=== PATIENT | male | born 1960 | race Hispanic/Latino ===

== ENCOUNTER 2017-02-11 20:16 | Emergency (ER) | payer SELFPAY ==
[~2017-02-11] VITALS: Ht 167.6 cm; Wt 86.2 kg
[~2017-02-11 20:16] MED LIST: AMIODARONE HCL200 MG PO; BENAZEPRIL HCL10 MG PO; DIGOXIN125 MCG PO; MULTAQ400 MG PO; TENORMIN25 MG PO; XARELTO20 MG PO; Z.0.BYSTOLIC5 MG; Z.0.CELEBREX50 MG; Z.0.XANAX0.5 MG PO
[2017-02-11] MEDS ORDERED: SODIUM CHLORIDE 0.9% 1000ML 1,000 ML IV STA (20:36)
[2017-02-11] MEDS ORDERED: METOPROLOL TARTRATE 50 MG TAB PO ONE (20:45)
[2017-02-11 21:07] LABS: BASOPHILS % 0.3 % (0.0-1.0); EOSINOPHILS # (AUTO) 0.1 (0.0-0.4); EOSINOPHILS % 1.7 % (0.0-6.0); HEMATOCRIT 42.1 % (38.2-49.6); HEMOGLOBIN 15.4 g/dL (14.0-18.0); LYMPHOCYTES # (AUTO) 1.8 (1.0-3.2); LYMPHOCYTES % 25.2 % (18.0-39.1); MEAN CORPUSCULAR HEMOGLOBIN 32.6 pg (28-32); MEAN CORPUSCULAR HGB CONC 36.6 g/dL (31-35); MEAN CORPUSCULAR VOLUME 89.2 fL (81-99); MONOCYTES # (AUTO) 0.7 (0.2-0.8); MONOCYTES % 10.3 % (4.4-11.3); NEUTROPHILS # (AUTO) 4.4 (2.1-6.9); NEUTROPHILS % 62.2 % (38.7-80.0); PLATELET COUNT 176 x10e3/uL (140-360); RED BLOOD COUNT 4.72 x10e6/uL (4.3-5.7); RED CELL DISTRIBUTION WIDTH 12.1 % (11.7-14.4)
[2017-02-11 21:20] LABS: ALANINE AMINOTRANSFERASE 33 IU/L (0-55); ALBUMIN 3.9 g/dL (3.5-5.0); ALBUMIN/GLOBULIN RATIO 1.1 (0.8-2.0); ALKALINE PHOSPHATASE 70 IU/L (40-150); ANION GAP 10.7 mmol/L (8-16); BLOOD UREA NITROGEN 22 mg/dL (7-26); BUN/CREATININE RATIO 21 (6-25); CALCIUM 8.9 mg/dL (8.4-10.2); CARBON DIOXIDE 26 mmol/L (22-29); CHLORIDE 111 mmol/L (98-107); CREATINE KINASE 450 IU/L (30-200); CREATININE, SERUM 1.03 mg/dL (0.72-1.25); EST GLOMERULAR FILTRATION RATE > 60 ML/MIN (60-); GLUCOSE 124 mg/dL (74-118); POTASSIUM 3.7 mmol/L (3.5-5.1); SODIUM 144 mmol/L (136-145)
[2017-02-11] MEDS ORDERED: HYDROMORPHONE 1MG/1ML INJ IV STA (21:23)
[2017-02-11 21:26] LABS: TROPONIN I < 0.001 ng/mL (0-0.300)
[2017-02-11] MEDS ORDERED: METOPROLOL TARTRATE INJ 1 MG/ML VIAL IV ONE (22:00)
[2017-02-11 22:08] VITALS: BP 121/87
== END 2017-02-11 22:24 | disposition home or self-care (01) ==
LOC: ER 20:16
DX: R07.89 Other chest pain (principal); R00.2 Palpitations; I48.0 Paroxysmal atrial fibrillation; I10 Essential (primary) hypertension
CPT/HCPCS: 36415; 80053; 82550; 82553; 84484; 85025; 93005; 96360; 99283; J7030

== ENCOUNTER 2017-07-29 09:56 | Emergency (ER) | payer SELFPAY ==
[~2017-07-29] VITALS: Ht 167.6 cm; Wt 86.2 kg
--- OUTSIDE RECORDS SUMMARY | 2017-07-29 09:59 | XMS REPORT | Clinical Summary ---
Author Author [facility] Organization [facility] Address Unknown Phone Unavailable Care Team Providers Care Director New Product Name Role Phone Rosalva Kilgore MD PCP Allergies Active Allergy Reactions Severity Noted Date Comments Penicillin 04/08/2015 Has tolerated amoxicillin (allergy to PCN when He was 6 years ago) Current Medications Prescription Sig. Disp. Refills Start End Date Status Date triamcinolone (KENALOG) Apply to affected area 2 80 g 0 11/15/19 Active 0.025 % ointment times daily As needed. 17 cetirizine (ZYRTEC) 10 mg Take 1 tablet by mouth 90 tablet 1 11/15/19 Active tablet daily. 17 CPAP Supply Full Face Mask (fit to 1 Device 0 12/15/19 Active patient), tubing & other 17 supplies as needed to treat ALIX.. amiodarone (CORDARONE) Take 1 tablet by mouth 2 120 tablet 1 03/08/19 Active 200 mg tabletIndications: times daily. 18 History of atrial fibrillation atenolol (TENORMIN) 25 mg Take 1 tablet by mouth 2 180 tablet 1 Active tabletIndications: times daily. 18 History of atrial fibrillation tamsulosin (FLOMAX) 0.4 Take 1 capsule by mouth 90 capsule 1 03/08/19 Active mg extended release daily. 18 capsuleIndications: Nephrolithiasis cetirizine (ZYRTEC) 10 mg Take 1 tablet by mouth 90 tablet 1 03/08/19 Active tabletIndications: daily. 18 Sinusitis, unspecified chronicity, unspecified location cyclobenzaprine Take 1 tablet by mouth 7 tablet 1 03/21/19 Active (FLEXERIL) 10 mg nightly at bedtime as 18 tabletIndications: needed for Muscle Spasms. Musculoskeletal neck pain CPAP DeviceIndications: Use device as directed. 1 Device 0 05/04/19 Active ALIX on CPAP Date of Study: 04/17/12 18 Diagnosis: ALIX 327.23 AHI:27.9 SaO2 guerrero: 77 Auto CPAP Pressure: 7-12 cm H2O with heated humidifier: Yes with mask (fit to patient) and supplies as needed: Yes Chin Strap: No. albuterol (VENTOLIN Inhale 2 Puffs by mouth 4 6.7 g 3 05/05/19 Active HFA,PROVENTIL HFA,PROAIR times daily as needed for 18 HFA) 90 mcg/actuation Wheezing. inhalerIndications: Shortness of breath rivaroxaban (XARELTO) 20 Take 1 tablet by mouth 90 tablet 1 07/06/19 Active mg tabletIndications: daily (with dinner). 18 Anticoagulation monitoring, INR range 2-3 albuterol (VENTOLIN Inhale 2 Puffs by mouth 4 6.7 g 11 09/23/1911/16 Discontin HFA,PROVENTIL HFA,PROAIR times daily as needed for 15 17 ued HFA) 90 mcg/actuation Wheezing. inhalerIndications: History of asthma mometasone (NASONEX) 50 1 [place] by each nostril 17 g 11 09/23/1911/16 Discontin mcg/actuation nasal route daily. 15 17 ued sprayIndications: Allergic rhinitis cetirizine (ZYRTEC) 10 mg Take 1 tablet by mouth 90 tablet 1 04/08/19 10/06/19 Discontin tabletIndications: Other daily. 16 17 ued allergic rhinitis amitriptyline (ELAVIL) 25 Take 2 tablets by mouth 180 tablet 1 10/06/19 Discontin mg tabletIndications: at bedtime nightly. 16 17 ued Vertigo, Headache(784.0), Anxiety Tadalafil (CIALIS) 5 mg Take 1 tablet by mouth as 30 tablet 0 10/06/19 Discontin tabletIndications: needed for Erectile 16 17 ued Erectile dysfunction, Dysfunction. unspecified erectile dysfunction type traMADol (ULTRAM) 50 mg Take 1 tablet by mouth 30 tablet 0 10/01/19 10/06/19 Discontin tabletIndications: Status every 6 hours as needed 16 17 ued post endoscopic carpal for Pain. tunnel release atenolol (TENORMIN) 50 mg Take 1 tablet by mouth 2 180 tablet 1 10/06/19 Discontin tabletIndications: times daily. 16 17 ued History of atrial fibrillation tamsulosin (FLOMAX) 0.4 Take 1 capsule by mouth 90 capsule 1 12/23/19 03/08/19 Discontin mg extended release daily. 16 18 ued capsuleIndications: Nephrolithiasis atenolol (TENORMIN) 25 mg Take 1 tablet by mouth 2 180 tablet 1 03/08/19 Discontin tabletIndications: Atrial times daily. 17 18 ued fibrillation, unspecified type digoxin (LANOXIN) 125 mcg Take 1 tablet by mouth 90 tablet 1 10/06/19 10/14/19 Discontin tabletIndications: Atrial daily. 17 17 ued fibrillation, unspecified type warfarin (COUMADIN) 5 mg Take 1 tablet by mouth 30 tablet 0 10/06/19 10/06/19 Discontin tabletIndications: Atrial daily. 17 17 ued fibrillation, unspecified type rivaroxaban (XARELTO) 20 Take 1 tablet by mouth 90 tablet 0 10/06/19 12/01/19 Discontin mg tabletIndications: daily (with dinner). 17 17 ued Anticoagulation monitoring, INR range 2-3 amiodarone (CORDARONE) Take 1 tablet by mouth 2 120 tablet 1 10/14/19 03/08/19 Discontin 200 mg tabletIndications: times daily. 17 18 ued Atrial fibrillation, unspecified type rivaroxaban (XARELTO) 20 Take 1 tablet by mouth 90 tablet 1 12/01/19 07/06/19 Discontin mg tabletIndications: daily (with dinner). 17 18 ued Anticoagulation monitoring, INR range 2-3 fluticasone (FLONASE) 50 Use 2 Sprays in each 16 g 1 12/15/19 Discontin mcg/actuation nasal nostril daily 17 18 ued sprayIndications: Difficulty using continuous positive airway pressure (CPAP) nasal mask fluticasone (FLONASE) 50 Use 2 Sprays in each 16 g 3 12/15/19 Discontin mcg/actuation nasal spray nostril daily 17 18 ued cyclobenzaprine Take 1 tablet by mouth 7 tablet 1 03/08/19 03/08/19 Discontin (FLEXERIL) 10 mg nightly at bedtime as 18 18 ued tabletIndications: needed for Muscle Spasms. Musculoskeletal neck pain ciclesonide (ZETONNA) 37 Use 1 [place] in each 6.1 g 11 03/08/1905/03 Discontin mcg/actuation nasal HFA nostril daily. 18 18 ued inhalerIndications: Sinusitis, unspecified chronicity, unspecified location [id number] Instill 3 Drops in each 10 mL 0 03/21/19 03/31/19 ortisone (CORTISPORIN) ear 4 times daily for 10 18 18 3.5-10,000-1 days. mg/mL-unit/mL-% otic solutionIndications: Otitis externa of both ears, unspecified chronicity, unspecified type fluticasone (FLONASE) 50 Use 1 [place] in each 16 g 4 05/04/19 mcg/actuation nasal nostril daily for 30 18 18 sprayIndications: days. Allergic rhinitis, unspecified chronicity, unspecified seasonality, unspecified trigger Hospital, Clinic, or Ordered Dose Route Frequency Start End Date Status Other Facility Date Administered Medication triamcinolone acetonide 20 mg OTHER ONCE 03/22/19 03/22/19 Ended (KENALOG-40) injection 20 18 18 mgIndications: Trigger index finger of right hand lidocaine 1 % (XYLOCAINE) 0.5 mL IJ ONCE 03/22/19 03/22/19 Ended injection 0.5 18 18 mLIndications: Trigger index finger of right hand Active Problems Problem Noted Date Renal calculus 03/08/2017 Tick bite 11/14/2016 Irritant contact dermatitis 11/14/2016 Contact with and (suspected) exposure to viral hepatitis- partner has 2016 hepatitis - to use condoms Environmental allergies 11/14/2016 Low serum calcium - nephrolithiasis hist - no supplementation advised 2016 Non-smoker 10/05/2016 Overweight (BMI 25.0-29.9) 10/05/2016 Sleep apnea- using cpap -helping ; BP controlled 10/05/2016 Stress headaches- spouse s/p coma with memory speech issues - needs asst with ADLs Lateral epicondylitis of right elbow 09/17/2015 Alcohol use 05/05/2015 Nephrolithiasis- christy non obstructing 05/05/2015 Hyperplastic polyp of large intestine-Repeat colonoscopy 202401/31/2015 History of asthma 09/22/2014 Allergic rhinitis 09/22/2014 Skin lesion- 1.5 cm left upper abd/chest area-compressible 09/22/2014 History of atrial fibrillation- paroxysmal - on xeralto , amiodarone and atenolol as of 05/2017 -ref to cardiology done ; holter and TTE completed Stress- self issues and caregiver issues 09/22/2014 Hematochezia 09/22/2014 Obesity 09/22/2014 Encounters Date Type Specialty Care Team Description 07/11/2017 Pharmacy Visit 07/05/2017 Pharmacy Visit 07/05/2017 Refill [facility] Rosalva Fernández MD Anticoagulation monitoring, INR range 2-3 07/04/2017 Pharmacy Visit 06/21/2017 Office Visit [facility] Practice Rosalva Kilgore MD History of atrial fibrillation- paroxysmal - on xeralto , amiodarone and atenolol as of 05/2017 -ref to cardiology done ; holter and TTE completed (Primary Dx); Vitamin D insufficiency 06/19/2017 Refill Family Rosalva Fernández MD Anticoagulation monitoring, INR range 2-3 06/19/2017 Pharmacy Visit 06/13/2017 Pharmacy Visit 06/09/2017 Pharmacy Visit 06/09/2017 Pharmacy Visit 05/18/2017 Pharmacy Visit 05/17/2017 Pharmacy Visit 05/13/2017 Orders Only [facility] Rosalva Fernández MD Vitamin D insufficiency (Primary Dx) 05/11/2017 Lab Appointment Lab Colleen Black MD Essential hypertension; Fatigue, unspecified type 05/04/2017 Office Visit Family Practice Alec Grimaldo MD History of atrial Rosalva Kilgore MD fibrillation- paroxysmal - last episode [address] back [facility] ([facility] Dx); Fatigue, unspecified type; History of anxiety; Shortness of breath; History of asthma 05/04/2017 Orders Only Family Rosalva Fernández MD History of anxiety 05/04/2017 Pharmacy Visit 05/03/2017 Office Visit Pulmonology Douglas Boone MD ALIX on CPAP ( Primary Dx); CPAP use counseling; Insufficient sleep syndrome; Excessive daytime sleepiness; Allergic rhinitis, unspecified chronicity, unspecified seasonality, unspecified trigger 05/03/2017 Pharmacy Visit 04/20/2017 Hospital Rosalva iKlgore MD Encounter 04/12/2017 Pharmacy Visit 04/03/2017 Pharmacy Visit 03/29/2017 Pharmacy Visit 03/29/2017 Pharmacy Visit 03/29/2017 Pharmacy Visit 03/22/2017 Office Visit Family Practice Rosalva Kilgore MD Trigger index finger of Sandi Branch MD right hand (Primary Dx) 03/21/2017 Office Visit Family Practice Rosalva Kilgore MD Trigger index finger of right hand (Primary Dx); Otitis externa of both ears, unspecified chronicity, unspecified type; Environmental allergies; Musculoskeletal neck pain 03/21/2017 Orders Only Family Practice Rosalva Kilgore MD Trigger index finger of right hand 03/21/2017 Pharmacy Visit 03/08/2017 Office Visit [facility] Rosalva Kilgore MD History of atrial fibrillation- paroxysmal - last episode 6 wks back - [facility] (Primary Dx); Essential hypertension; Sleep apnea, unspecified type- using cpap ; Nephrolithiasis- christy non obstructing ; Flu vaccine need; Musculoskeletal neck pain; Sinusitis, unspecified chronicity, unspecified location 03/08/2017 Pharmacy Visit 02/13/2017 Pharmacy Visit 02/09/2017 Pharmacy Visit 02/09/2017 Pharmacy Visit 02/08/2017 Pharmacy Visit 02/07/2017 Pharmacy Visit 02/06/2017 Pharmacy Visit 01/24/2017 Pharmacy Visit 01/24/2017 Pharmacy Visit 01/05/2017 Pharmacy Visit 12/30/2016 Pharmacy Visit 12/29/2016 Pharmacy Visit 12/21/2016 Pharmacy Visit 12/14/2016 Office Visit Pulmonology Marie Tillman MD Difficulty using Douglas Boone MD continuous positive airway pressure (CPAP) nasal mask (Primary Dx); ALIX on CPAP; Paroxysmal atrial fibrillation 12/14/2016 Pharmacy Visit 12/12/2016 Hospital Cardiology Rosalva Kilgore MD Encounter 12/12/2016 Pharmacy Visit 11/30/2016 Office Visit Clinical Pharmacy Yanira Briggs [facility] Anticoagulation monitoring, INR range 2-3 11/30/2016 Pharmacy Visit 11/23/2016 Orders Only Family Practice Luiz Elam History of atrial fibrillation- recent episodes - eval done at outside hosp 11/15/2016 Pharmacy Visit 11/14/2016 Office Visit Family Practice Rosalva Kilgore MD Sleep apnea- using cpap -helping ; BP controlled (Primary Dx); History of atrial fibrillation-one episode -several yrs back- 2010 - on amiadorone , xeralto - since sep 2016 ; Preventative health care; Contact with and (suspected) exposure to viral hepatitis; Irritant contact dermatitis, unspecified trigger- poison rick ; Tick bite, initial encounter; Environmental allergies 11/14/2016 Pharmacy Visit 10/20/2016 Pharmacy Visit 10/14/2016 Orders Only Family Rosalva Fernández MD History of atrial fibrillation- recent episodes - eval done at outside hosp 10/13/2016 Pharmacy Visit 10/13/2016 Orders Only [facility] Rosalva Fernández MD Atrial fibrillation, unspecified type (Primary Dx) 10/10/2016 Orders Only [facility] Rosalva Fernández MD Low serum calcium (Primary Dx) 10/06/2016 Pharmacy Visit 10/05/2016 Office Visit Clinical Pharmacy Yanira Briggs [facility] Anticoagulation monitoring, INR range 2-3 (Primary Dx) 10/05/2016 Office Visit Family Rosalva Fernández MD Atrial fibrillation, unspecified type (Primary Dx); Alcohol use- 4 beers on wk ends ; Non-smoker; Fatigue, unspecified type; Overweight (BMI 25.0-29.9); History of sleep apnea 10/05/2016 Pharmacy Visit after 07/28/2016 Immunizations Name Dates Previously Given Next Due Influenza Vaccine, 03/08/2017 (Deferred: Patient Refused) Seasonal, Injectable TDap (Tetanus Toxoid, 11/14/2016 Reduced Diphtheria Toxoid And Acellular Pertussis, Absorbed) Family History Medical History Relation Name Comments Hypertension Brother Arthritis Father Cancer Father Hypertension Father Arthritis Mother Diabetes Sister Hypertension Sister Seizures Sister Relation Name Status Comments Brother Alive Brother Daughter Alive Father Maternal Grandfather Maternal Grandmother Mother Paternal Grandfather Paternal Grandmother Sister Alive x3 Sister Sister Sister Social History Tobacco Use Types Packs/Day Years Used Date Never Smoker Smokeless Tobacco: Never Used Tobacco Cessation: Counseling Given: Yes Alcohol Use Drinks/Week oz/Week Comments Yes 0 Standard 0.0 socially drinks or equivalent Sex Assigned at Date Recorded Not on file Last Filed Vital Signs Vital Sign Reading Time Taken Blood Pressure 119/76 06/21/2017 10:19 AM CDT Pulse 65 06/21/2017 10:19 AM CDT Temperature 36.7 C (98.1 F) 06/21/2017 10:19 AM CDT Respiratory Rate 16 06/21/2017 10:19 AM CDT Oxygen Saturation 97% 05/03/2017 9:15 AM [employer]IDENT[employer]CTION [employer] Inhaled Oxygen - - Concentration Weight 83 kg (183 lb) 06/21/2017 10:19 AM CDT Height 167.6 cm (5' 6") 06/21/2017 10:19 AM CDT Body Mass Index 29.54 06/21/2017 10:19 AM CDT Plan of Treatment Date Type Specialty Care Team Description 09/18/2017 Office Visit Cardiology Ref # [id number] Health Maintenance Due Date Last Done Comments COLONOSCOPY 10YR 01/27/2025 01/27/2015 Results * VIT D, 25-HYDROXY (05/11/2017 7:59 AM) Component Value Ref Range Vit D, 25-Hydroxy 21.9 (L) 30 - 100 ng/mL Comment: Vitamin D deficiency has been defined by the [place] of Medicine and Endocrine Society guideline as a level of serum 25-OH Vitamin D less than 20 ng/mL. The Endocrine Society further defines Vitamin D insufficiency as a level between 21 and 29 ng/mL and sufficiency as a level between 30 and 100 ng/mL. Specimen Performing Laboratory [facility] * HEMOGLOBIN A1C (05/11/2017 7:59 AM) Only the most recent of 2 results within the time period is included. Component Value Ref Range Hemoglobin A1c 5.2 4.3 - 6.1 % Est Average Gluc 102.5 mg/dL Specimen Performing Laboratory Blood [facility] * COMPREHENSIVE METABOLIC PANEL(DBIL NOT INCLUDED) (05/11/2017 7:59 AM) Only the most recent of 2 results within the time period is included. Component Value Ref Range Albumin 3.7 (L) 4.2 - 5.5 g/dL Calcium 9.1 8.6 - 10.3 mg/dL CO2 24 21 - 31 mmol/L Chloride 109 (H) 98 - 107 mmol/L Creatinine 0.90 0.7 - 1.3 mg/dL Glucose 98 70 - 110 mg/dL Alk Phos 56 34 - 104 U/L Potassium 4.2 3.5 - 5.1 mmol/L Sodium 143 136 - 145 mmol/L ALT 24 7 - 52 U/L AST 28 13 - 39 U/L Urea Nitrogen 20 7 - 25 mg/dL T Bilirubin 0.7 0.2 - 1.2 mg/dL T Protein 6.2 6.0 - 8.3 g/dL GFR, Estimated >60 mL/min/1.73 m2 GFR, Estim, Afr-Am >60 mL/min/1.73 m2 Anion Gap 10 Specimen Performing Laboratory Blood [facility] * TESTOSTER FR/TOT (05/11/2017 7:59 AM) Component Value Ref Range Testosterone 633 Reference range: 264 to 916 Unit: ng/dL (note) Adult male reference interval is based on a population of healthy nonobese males (BMI <30) between 19 and 39 years old. Melissa et.al. JCEM 2017,102;2356-3382. PMID: [id number]. Free Testos Direct 9.3 Reference range: 7.2 to 24.0 Unit: pg/mL Specimen Performing Laboratory Blood [facility]IS[facility] * TSH (05/11/2017 7:59 AM) Only the most recent of 2 results within the time period is included. Component Value Ref Range TSH 0.80 0.45 - 5.33 uIU/mL Specimen Performing Laboratory Blood MISYS * CBC/DIFF (05/11/2017 7:59 AM) Only the most recent of 2 results within the time period is included. Component Value Ref Range WBC 4.9 4.5 - 12.0 K/uL RBC 4.23 (L) 4.60 - 6.20 M/uL Hemoglobin 14.4 14.0 - 18.0 g/dL Hematocrit 40.5 40.0 - 54.0 % MCV 96 (H) 82 - 92 fL MCH 34.0 (H) 27.0 - 31.0 pg MCHC 35.6 32.0 - 36.0 g/dL RDW 43.5 35.1 - 43.9 fL Platelet 156 150 - 400 K/uL Mean Platelet Volume 9.5 9.4 - 12.4 fL Percent NRBC 0.0 Absolute NRBC 0.00 Neutrophil 45.9 34.0 - 67.9 % Lymphocyte 37.4 21.8 - 50.0 % Monocyte 14.0 (H) 5.3 - 12.0 % Eosinophil 2.1 0.8 - 5.0 % Basophil 0.6 0.2 - 1.2 % Pct Immat Gran 0.0 0.0 - 0.5 Neutrophil, Abs 2.24 1.78 - 5.36 K/uL Lymphocyte, Abs 1.82 1.32 - 3.57 K/uL Monocyte, Abs 0.68 0.30 - 0.82 K/uL Eosinophil, Abs 0.10 0.04 - 0.54 K/uL Basophil, Abs 0.03 0.01 - 0.08 K/uL Absol Immat Gran 0.00 0.00 - 0.03 K/uL Specimen Performing Laboratory Blood [facility] * TRANSTHORACIC ECHO (TTE) (04/20/2017 11:51 AM) Component Value Ref Range TRANSTHORACIC ECHO (TTE) Transthoracic Echo Report CHANNING FENG Age: 56 Gender: M : 1960 Exam Date: 04/20/2017 11:51 Exam Location: [facility] Echo Ordering Phys: REINALDO KILGORE Referring Phys: REINALDO KILGORE Reading Phys: Asher Cerda MD Fellow Phys: Fellow Phys: Tank Driver: Kamille Yoder Reason For Exam: Indications: atrial fibrillation ICD-9 Codes: Exam Type: Transthoracic Echo Procedure CPT: 72009 Addtional CPT: Ht (in): 66 BSA: 2.04 HR: 68 Rhythm: Sinus bradycardia Wt (lb): 191 BP: 142 / 89 Technical Quality: Good History: MEASUREMENTS (Male / Female) Normal Values 2D ECHO LV Diastolic Diameter PLAX 5.1 cm 4.2 - 5.9 / 3.9 - 5.3 cm LV Systolic Diameter PLAX 3.3 cm 2.1 - 4.0 cm LV Fractional Shortening PLAX 34.7 % 25 - 46 % IVS Diastolic Thickness 1.2 cm IVS Systolic Thickness 1.4 cm LVPW Diastolic Thickness 0.92 cm LVPW Systolic Thickness 1.6 cm LV Relative Wall Thickness 0.42 LVOT Diameter 2.2 cm Aortic Root Diameter 3.5 cm LA Systolic Diameter LX 4.5 cm 3.0 - 4.0 / 2.7 - 3.8 cm LA Ao Ratio 1.3 LV Diastolic Volume MOD BP 88 cm 67 - 155 / 56 - 104 cm LV Systolic Volume MOD BP 31.7 cm 22 - 58 / 19 - 49 cm LV Ejection Fraction MOD BP 64 % >=55 % LV Stroke Volume MOD BP 56.3 cm LV Cardiac Output MOD BP 3828 cm /min LV Cardiac Index MOD BP 1880 cm /min m LV Diastolic Volume MOD 4C 89.7 cm LV Systolic Volume MOD 4C 30.8 cm LV Ejection Fraction MOD 4C 65.7 % LV Stroke Volume MOD 4C 58.9 cm LV Cardiac Output MOD 4C 4005 cm /min LV Cardiac Index MOD 4C 1967 cm /min m LV Diastolic Volume MOD 2C 82.1 cm LV Diastolic Length 4C 7.8 cm 6.9 - 10.3 cm LV Systolic Length 4C 6.5 cm LV Diastolic Area 4C 28.9 cm LV Diastolic Volume 4C AL 91.4 cm 85 - 139 / 69 - 109 cm LV Systolic Area 4C 14.9 cm LV Systolic Volume 4C AL 28.9 cm LV Ejection Fraction 4C AL 68.3 % LV Stroke Volume 4C AL 62.4 cm LV Cardiac Output 4C AL 4245 cm /min LV Cardiac Index 4C AL 2085 cm /min m LV Diastolic Area 2C 28.2 cm LV Diastolic Length 2C 8.2 cm LV Diastolic Volume 2C AL 82.5 cm 103 - 157 / 73 - 111 cm LV Systolic Area 2C 14.9 cm LV Systolic Length 2C 6.3 cm LV Systolic Volume 2C AL 30 cm LV Ejection Fraction 2C AL 63.7 % LV Stroke Volume 2C AL 52.6 cm LV Cardiac Output 2C AL 3576 cm /min LV Cardiac Index 2C AL 1756 cm /min m LA Area 4C View 16.6 cm <=20 cm LA Length 4C 2.2 cm LA Area 2C View 17.5 cm <=20 cm LA Length 2C 1.8 cm LA Volume 58.5 cm 18 - 58 / 22 - 52 cm LA Volume Index 28.7 cm /m 16 - 28 cm /m LA Volume MOD 4C 44.3 cm 18 - 58 / 22 - 52 cm DOPPLER AV Peak Velocity 103 cm/s AV Peak Gradient 4.2 mmHg AV Mean Velocity 71.8 cm/s AV Mean Gradient 2 mmHg AV Velocity Time Integral 23.6 cm LVOT Peak Velocity 88.8 cm/s LVOT Peak Gradient 3.2 mmHg LVOT Mean Velocity 56.6 cm/s LVOT Mean Gradient 1 mmHg LVOT Velocity Time Integral 18.8 cm LVOT Stroke Volume 71.5 cm AV Area Cont Eq vti 3 cm AV Area Cont Eq pk 3.3 cm Mitral E Point Velocity 68.4 cm/s Mitral A Point Velocity 61.6 cm/s Mitral E to A Ratio 1.1 MV Deceleration [place] 252 cm/s MV Pressure Half Time 79 ms MV Area PHT 2.8 cm MV Deceleration Time 271 ms TR Peak Velocity 248 cm/s TR Peak Gradient 24.6 mmHg PV Peak Velocity 101 cm/s PV Peak Gradient 4.1 mmHg RVOT Peak Velocity 49.5 cm/s RVOT Peak Gradient 0.98 mmHg LV E' Lateral Velocity 10.2 cm/s Mitral E to LV E' Lateral Ratio 6.7 LV E' Septal Velocity 7.9 cm/s Mitral E to LV E' Septal Ratio 8.6 FINDINGS Left Ventricle The left ventricle is normal in size. Upper-normal LV wall thickness. LV systolic function is normal. LVEF is 60 - 64%. There are no regional wall motion abnormalities. There is normal LV relaxation with normal filling pressures. Right Ventricle The right ventricle is normal in size and systolic function. Right Atrium The right atrium is normal in size. Left Atrium The left atrium is normal in size. IAS Mitral Valve Structurally normal mitral valve without significant stenosis or prolapse. There is trace mitral regurgitation. Aortic Valve The aortic valve is trileaflet, mildly thickened, otherwise structurally normal. There is no aortic stenosis. There is no aortic regurgitation. Tricuspid Valve Structurally normal tricuspid valve without significant stenosis. There is trace tricuspid regurgitation. Insufficient TR jet to estimate pulmonary artery systolic pressure. Pulmonic Valve Pulmonic valve not well visualized. No significant pulmonic stenosis or regurgitation by Doppler assessment. Pericardium No pericardial effusion. Aorta Normal aortic root for body surface area. IVC The inferior vena cava is normal in size with greater than 50% respiratory change in dimension, consistent with RA pressure 0-5 mmHg. CONCLUSIONS Upper-normal LV wall thickness. LV systolic function is normal, LVEF is 60 - 64%. There are no regional wall motion abnormalities. There is normal LV relaxation with normal filling pressures. There is trace mitral regurgitation. The aortic valve is trileaflet, mildly thickened, otherwise structurally normal without stenosis or regurgitation. Insufficient TR jet to estimate pulmonary artery systolic pressure. No other significant abnormalities noted. No prior study for comparison. Asher Cerda MD (Electronically Signed) Final Date: 20 April 2017 15:04 2D ECHO LV Diastolic Diameter PLAX 5.1 cm 4.2 - 5.9 / 3.9 - 5.3 cm LV Systolic Diameter PLAX 3.3 cm 2.1 - 4.0 cm LV Fractional Shortening PLAX 34.7 % 25 - 46 % IVS Diastolic Thickness 1.2 cm IVS Systolic Thickness 1.4 cm LVPW Diastolic Thickness 0.92 cm LVPW Systolic Thickness 1.6 cm LV Relative Wall Thickness 0.42 LVOT Diameter 2.2 cm Aortic Root Diameter 3.5 cm LA Systolic Diameter LX 4.5 cm 3.0 - 4.0 / 2.7 - 3.8 cm LA Ao Ratio 1.3 LV Diastolic Volume MOD BP 88 cm 67 - 155 / 56 - 104 cm LV Systolic Volume MOD BP 31.7 cm 22 - 58 / 19 - 49 cm LV Ejection Fraction MOD BP 64 % >=55 % LV Stroke Volume MOD BP 56.3 cm LV Cardiac Output MOD BP 3828 cm /min LV Cardiac Index MOD BP 1880 cm /min m LV Diastolic Volume MOD 4C 89.7 cm LV Systolic Volume MOD 4C 30.8 cm LV Ejection Fraction MOD 4C 65.7 % LV Stroke Volume MOD 4C 58.9 cm LV Cardiac Output MOD 4C 4005 cm /min LV Cardiac Index MOD 4C 1967 cm /min m LV Diastolic Volume MOD 2C 82.1 cm LV Diastolic Length 4C 7.8 cm 6.9 - 10.3 cm LV Systolic Length 4C 6.5 cm LV Diastolic Area 4C 28.9 cm LV Diastolic Volume 4C AL 91.4 cm 85 - 139 / 69 - 109 cm LV Systolic Area 4C 14.9 cm LV Systolic Volume 4C AL 28.9 cm LV Ejection Fraction 4C AL 68.3 % LV Stroke Volume 4C AL 62.4 cm LV Cardiac Output 4C AL 4245 cm /min LV Cardiac Index 4C AL 2085 cm /min m LV Diastolic Area 2C 28.2 cm LV Diastolic Length 2C 8.2 cm LV Diastolic Volume 2C AL 82.5 cm 103 - 157 / 73 - 111 cm LV Systolic Area 2C 14.9 cm LV Systolic Length 2C 6.3 cm LV Systolic Volume 2C AL 30 cm LV Ejection Fraction 2C AL 63.7 % LV Stroke Volume 2C AL 52.6 cm LV Cardiac Output 2C AL 3576 cm /min LV Cardiac Index 2C AL 1756 cm /min m LA Area 4C View 16.6 cm <=20 cm LA Length 4C 2.2 cm LA Area 2C View 17.5 cm <=20 cm LA Length 2C 1.8 cm LA Volume 58.5 cm 18 - 58 / 22 - 52 cm LA Volume Index 28.7 cm /m 16 - 28 cm /m LA Volume MOD 4C 44.3 cm 18 - 58 / 22 - 52 cm DOPPLER AV Peak Velocity 103 cm/s AV Peak Gradient 4.2 mmHg AV Mean Velocity 71.8 cm/s AV Mean Gradient 2 mmHg AV Velocity Time Integral 23.6 cm LVOT Peak Velocity 88.8 cm/s LVOT Peak Gradient 3.2 mmHg LVOT Mean Velocity 56.6 cm/s LVOT Mean Gradient 1 mmHg LVOT Velocity Time Integral 18.8 cm LVOT Stroke Volume 71.5 cm AV Area Cont Eq vti 3 cm AV Area Cont Eq pk 3.3 cm Mitral E Point Velocity 68.4 cm/s Mitral A Point Velocity 61.6 cm/s Mitral E to A Ratio 1.1 MV Deceleration [place] 252 cm/s MV Pressure Half Time 79 ms MV Area PHT 2.8 cm MV Deceleration Time 271 ms TR Peak Velocity 248 cm/s TR Peak Gradient 24.6 mmHg PV Peak Velocity 101 cm/s PV Peak Gradient 4.1 mmHg RVOT Peak Velocity 49.5 cm/s RVOT Peak Gradient 0.98 mmHg LV E' Lateral Velocity 10.2 cm/s Mitral E to LV E' Lateral Ratio 6.7 LV E' Septal Velocity 7.9 cm/s Mitral E to LV E' Septal Ratio 8.6 Specimen Performing Laboratory SMS * 24 HOUR HOLTER MONITOR (12/12/2016 10:09 AM) Component Value Ref Range 24 HOUR HOLTER MONITOR [facility] Test Date: 2016-12-12 Pat Name: CHANNING FENG Department: Room: Gender: M T echnician: JAIRKJ SOARES : 1960 Requested By: Order Number: Sacha MD: Allison Saba M.D. Interpretive Statements PREDOMINANT RHYTHM IS SINUS HR RANGE: 50-139 BPM LONGEST PAUSE: 1.3 SEC RARE PACS NO HEART BLOCK Electronically Signed On 12-14-16 06:51:42 CDT by Allison Saba M.D. Specimen Performing Laboratory SMS * LYME AB/WB (11/14/2016 2:47 PM) Component Value Ref Range Lyme IgG/IgM Ab <0.91 Reference range: 0.00 to 0.90 Unit: ISR (note) Negative <0.91 Equivocal 0.91 - 1.09 Positive >1.09 Lyme Dis Ab IgM Qt <0.80 Reference range: 0.00 to 0.79 Unit: index (note) Negative <0.80 Equivocal 0.80 - 1.19 Positive >1.19 IgM levels may peak at 3-6 weeks post infection, then gradually decline. Specimen Performing Laboratory Blood MISYS * HEPATITIS PANEL (11/14/2016 2:47 PM) Component Value Ref Range HCV IgG Negative NEG HBsAg Negative NEG HAV, IgM Negative NEG HBcAb, IgM Negative NEG Specimen Performing Laboratory Blood MISYS * XRAY CHEST 2 VIEWS (10/05/2016 1:33 PM) Specimen Performing Laboratory SMS Impressions IMPRESSION: No acute thoracic abnormality. If the report is "FINALIZED" it indicates that the attending/staff radiologist has reviewed the images and agrees with the resident's interpretation. Dictated By: Emmy Sarah MD, 10/05/2016 1:40 PM I have reviewed the study and agree with the findings in this report. Signed By: Shalini Randle MD, 10/05/2016 4:05 PM Narrative EXAMINATION:XRAY CHEST 2 VIEWS INDICATION: atrial fibrillation COMPARISON:None FINDINGS:PA and lateral views TUBES and LINES:None. LUNGS:Lungs are well inflated.Lungs are clear. There is no evidence of pneumonia or pulmonary edema. PLEURA:No pleural effusion or pneumothorax. HEART AND MEDIASTINUM:The cardiomediastinal silhouette is unremarkable. BONES AND SOFT TISSUES:Mild bilateral AC joint osteoarthrosis. Healed left fifth and sixth anterior rib fractures. Soft tissues are unremarkable. UPPER ABDOMEN: No free air under the diaphragm. Procedure Note Interface, Rad/Mammog In - 10/05/2016 4:10 PM CDT EXAMINATION: XRAY CHEST 2 VIEWS INDICATION: atrial fibrillation COMPARISON: None FINDINGS: PA and lateral views TUBES and LINES: None. LUNGS: Lungs are well inflated. Lungs are clear. There is no evidence of pneumonia or pulmonary edema. PLEURA: No pleural effusion or pneumothorax. HEART AND MEDIASTINUM: The cardiomediastinal silhouette is unremarkable. BONES AND SOFT TISSUES: Mild bilateral AC joint osteoarthrosis. Healed left fifth and sixth anterior rib fractures. Soft tissues are unremarkable. UPPER ABDOMEN: No free air under the diaphragm. IMPRESSION: No acute thoracic abnormality. If the report is "FINALIZED" it indicates that the attending/staff radiologist has reviewed the images and agrees with the resident's interpretation. Dictated By: Emmy Sarah MD, 10/05/2016 1:40 PM I have reviewed the study and agree with the findings in this report. Signed By: Shalini Randle MD, 10/05/2016 4:05 PM * PTINR POC (10/05/2016 1:14 PM) Component Value Ref Range PT POC 24.4 (H) 11.8 - 15.0 Seconds INR POC 2.1 Therap Range Specimen Performing Laboratory MISYS * PT/INR (10/05/2016 12:29 PM) Component Value Ref Range PT 20.7 (H) 11.8 - 15.0 Seconds INR 1.8 SUGGESTED THERAPEUTIC RANGES: INR 2.0-3.0 for MODERATE INTENSITY ANTICOAGULATION INR 2.5-3.5 for HIGH INTENSITY ANTICOAGULATION Specimen Performing Laboratory Blood MISYS * MAGNESIUM (10/05/2016 12:29 PM) Component Value Ref Range Magnesium 2.4 1.8 - 2.4 mg/dL Specimen Performing Laboratory Blood MISYS * LIPID PROFILE (10/05/2016 12:29 PM) Component Value Ref Range Cholesterol 198 <200 mg/dL Comment: REFERENCE RANGE: Desirable: <200 mg/dL Borderline: 200-240 mg/dL High Risk: >240 mg/dL Triglyceride 127 mg/dL Comment: REFERENCE RANGE: Normal: <150 mg/dL Borderline High: 150-199 mg/dL High: 200-499 mg/dL Very High: >mc=765 mg/dL HDL 54 40 - 60 mg/dL Comment: Increased CHD risk: <40 mg/dL Decreased CHD risk: >60 mg/dL LDL 119 mg/dL Comment: REFERENCE RANGE: Optimal: <100 mg/dL Near Optimal: 100-129 mg/dL Borderline High: 130-159 mg/dL High: 160-189 mg/dL Very High: >xy=829 mg/dL Specimen Performing Laboratory Blood MISYS * DIGOXIN (10/05/2016 12:29 PM) Component Value Ref Range Digoxin 0.8 0.80 - 2.00 ng/mL Specimen Performing Laboratory Blood MISYS * 12 LEAD EKG (10/05/2016 12:20 PM) Component Value Ref Range 12 LEAD EKG FOR [facility] Test Date: 2016-10-05 Pat Name: CHANNING FENG Department: Room: Gender: M Thom echnician: [id number] : 1960 Requested By: Order Number: Reading MD: Allison Saba M.D. Measurements Intervals [place] Rate: 52 P: 57 CT: 144 QRS : 50 QRSD: 90 T: 24 QT: 404 QTc: 375 Interpretive Statements Sinus bradycardia Otherwise normal ECG Electronically Signed On 10-05-16 16:37:45 CDT by Allison Saba M.D. Specimen Performing Laboratory SMS after 07/28/2016
--- OUTSIDE RECORDS SUMMARY | 2017-07-29 09:59 | XMS REPORT ---
Author [facility] Address Unknown Phone Unavailable Care Team Providers Care Relocation Associate Name Role Phone ZEINA SALGADO Unavailable Unavailable Problems This patient has no known problems. Allergies, Adverse Reactions, Alerts This patient has no known allergies or adverse reactions. Medications This patient has no known medications. Encounters Start Date/Time End Date/Time Encounter Type Admission Type Attending [facility] Care Facility Care Department Encounter ID 2017-09-18 00:00:00 2017-09-18 00:00:[address] [facility] [id number] 2017-07-27 00:00:00 2017-07-27 00:00:[address] [facility] [id number] 2017-06-21 10:18:58 2017-06-21 10:18:[address] [facility] [id number] 2017-06-21 00:00:00 2017-06-21 00:00:[address] [facility] [id number] 2017-05-11 07:58:36 2017-05-11 07:58:[address] [facility] [id number] 2017-05-05 00:00:00 2017-05-05 00:00:[address] [facility] [id number] 2017-05-04 10:49:30 2017-05-04 10:49:[address] [facility] [id number] 2017-05-03 09:19:55 2017-05-03 09:19:[address] [facility] [id number] 2017-04-20 09:55:13 2017-04-20 09:55:[address] [facility] [id number] 2017-03-22 09:43:15 2017-03-22 09:43:[address] [facility] [id number] 2017-03-21 13:01:02 2017-03-21 13:01:[address] [facility] [id number] 2017-03-16 00:00:00 2017-03-16 00:00:[address] [facility] [id number] 2017-03-15 00:00:00 2017-03-15 00:00:[address] [facility] [id number] 2017-03-08 11:47:02 2017-03-08 11:47:[address] [facility] [id number] 2017-03-08 00:00:00 2017-03-08 00:00:[address] [facility] [id number] 2017-03-08 00:00:00 2017-03-08 00:00:[address] [facility] [id number] 2016-12-14 08:43:51 2016-12-14 08:43:[address] [facility] [id number] 2016-12-12 10:00:57 2016-12-12 10:00:[address] [facility] [id number] 2016-11-30 08:02:44 2016-11-30 08:02:[address] [facility] [id number] 2016-11-14 14:52:01 2016-11-14 14:52:[address] [facility] [id number] 2016-11-14 13:42:45 2016-11-14 13:42:[address] [facility] [id number] 2016-10-05 13:28:24 2016-10-05 13:28:[address] [facility] [id number] 2016-10-05 13:01:53 2016-10-05 13:01:[address] [facility] [id number] 2016-10-05 12:57:43 2016-10-05 12:57:[address] [facility] [id number] 2016-10-05 09:57:46 2016-10-05 09:57:[address] [facility] [id number] Results Test Description Test Time Test Comments Text Results Atomic Results Result Comments CHEST SINGLE (PORTABLE) [place] [id number] Patient Name: CHANNING BANEGAS MR #: [id number] : 1960 Age/Sex: 56/M Req #: [id number] Adm Physician: Ordered by: ZEINA SALGADO MD Report #: [id number] Location: ER Room/Bed: Procedure: [id number] DX/CHEST SINGLE (PORTABLE) Exam Date: 12/21/16 Exam Time: 0730 REPORT STATUS: Signed PROCEDURE: A single AP view of the chest. COMPARISON: 10/12/2016. INDICATIONS: AFIB FINDINGS: The lungs are well-inflated. No airspace consolidation, pleural effusion, or pneumothorax. Cardiomediastinal contour and pulmonary vasculature are within normal limits for portable, AP technique. No acute osseous abnormality. IMPRESSION: No acute cardiopulmonary abnormality. Dictated by: Kayla Nur M.D. on 2016 at 7:59 Electronically approved by: Kayla Nur M.D. on 12/21/2016 at 7:59 Dictated By: KAYLA NUR MD [id number] Transcribed By: ROBERTO on 12/21/169 COPY TO: ZEINA SALGADO MD
--- NOTE | 2017-07-29 11:22 | Diagnostic Imaging Report ---
EXAMINATION: PA and lateral views of the chest. COMPARISON: Chest one view 12/21/2016 CLINICAL HISTORY: Atrial fibrillation, shortness of breath DISCUSSION: Lines/tubes: None. Lungs: The lungs are well inflated and clear. There is no evidence of pneumonia or pulmonary edema. Pleura: There is no pleural effusion or pneumothorax. Heart and mediastinum: Cardiomediastinal silhouette is unremarkable. Pulmonary vasculature is normal. Bones and soft tissues: No acute bony abnormalities. Degenerative changes in the thoracic spine IMPRESSION: No acute cardiopulmonary abnormalities. Signed by: Dr. Justus Rice M.D. on 07/29/2017 11:19 AM
[2017-07-29 11:43] LABS: BASOPHILS % 0.6 % (0.0-1.0); EOSINOPHILS # (AUTO) 0.2 (0.0-0.4); EOSINOPHILS % 3.2 % (0.0-6.0); HEMATOCRIT 43.6 % (38.2-49.6); HEMOGLOBIN 16.3 g/dL (14.0-18.0); LYMPHOCYTES # (AUTO) 1.7 (1.0-3.2); LYMPHOCYTES % 35.7 % (18.0-39.1); MEAN CORPUSCULAR HEMOGLOBIN 33.7 pg (28-32); MEAN CORPUSCULAR HGB CONC 37.4 g/dL (31-35); MEAN CORPUSCULAR VOLUME 90.3 fL (81-99); MONOCYTES # (AUTO) 0.6 (0.2-0.8); MONOCYTES % 13.4 % (4.4-11.3); NEUTROPHILS # (AUTO) 2.2 (2.1-6.9); NEUTROPHILS % 46.9 % (38.7-80.0); PLATELET COUNT 182 x10e3/uL (140-360); RED BLOOD COUNT 4.83 x10e6/uL (4.3-5.7); RED CELL DISTRIBUTION WIDTH 12.3 % (11.7-14.4)
[2017-07-29 12:01] LABS: ALANINE AMINOTRANSFERASE 17 IU/L (0-55); ALBUMIN/GLOBULIN RATIO 1.4 (0.8-2.0); ALKALINE PHOSPHATASE 75 IU/L (40-150); ANION GAP 12.9 mmol/L (8-16); BLOOD UREA NITROGEN 15 mg/dL (7-26); BUN/CREATININE RATIO 15 (6-25); CALCIUM 9.3 mg/dL (8.4-10.2); CARBON DIOXIDE 25 mmol/L (22-29); CHLORIDE 108 mmol/L (98-107); CREATINE KINASE 128 IU/L (30-200); CREATININE, SERUM 0.97 mg/dL (0.72-1.25); EST GLOMERULAR FILTRATION RATE > 60 ML/MIN (60-); GLUCOSE 113 mg/dL (74-118); POTASSIUM 3.9 mmol/L (3.5-5.1); SODIUM 142 mmol/L (136-145)
[2017-07-29] MEDS ORDERED: AMIODARONE HCL 200 MG TAB PO STA (13:04)
[2017-07-29 13:45] VITALS: BP 129/86
[2017-07-29 16:18] LABS: INR 1.6; PARTIAL THROMBOPLASTIN TIME 38.2 seconds (23.8-35.5)
== END 2017-07-29 13:42 | disposition home or self-care (01) ==
LOC: ER 09:56
DX: R00.2 Palpitations (principal); I48.0 Paroxysmal atrial fibrillation; I10 Essential (primary) hypertension; F41.9 Anxiety disorder, unspecified
CPT/HCPCS: 36415; 71046; 80053; 82550; 82553; 84484; 85025; 85610; 85730; 93005; 99284

== ENCOUNTER 2018-05-21 23:06 | Observation (INO) | payer SELFPAY ==
[~2018-05-21] VITALS: Ht 167.6 cm; Wt 92.1 kg
--- OUTSIDE RECORDS SUMMARY | 2018-05-21 23:09 | XMS REPORT | Clinical Summary ---
Author Author [facility] Organization [facility] Address Unknown Phone Unavailable Care Team Providers Care Gift Shop Clerk Name Role Phone Rosalva Kilgore MD PCP Allergies Comments Active Allergy Reactions Severity Noted Date Has tolerated amoxicillin (allergy to PCN when He was 6 years ago) Penicillin 04/08/2015 Medications End Date Status Medication Sig Dispensed Refills Start Date Active triamcinolone (KENALOG) Apply to 80 g 0 0.025 % ointment affected area 7 2 times daily As needed. Active CPAP Supply Full Face 1 Device 0 Mask (fit to 7 patient), tubing & other supplies as needed to treat ALIX.. Active tamsulosin (FLOMAX) 0.4 Take 1 90 capsule 1 mg extended release capsule by 8 capsuleIndications: mouth daily. Nephrolithiasis Active CPAP DeviceIndications: Use device as 1 Device 0 ALIX on CPAP directed. 8 Date of Study: 04/17/12 Diagnosis: ALIX 327.23 AHI:27.9 SaO2 guerrero: 77 Auto CPAP Pressure: 7-12 cm H2O with heated humidifier: Yes with mask (fit to patient) and supplies as needed: Yes Chin Strap: No. Active albuterol (VENTOLIN Inhale 2 6.7 g 3 HFA,PROVENTIL HFA,PROAIR Puffs by 8 HFA) 90 mcg/actuation mouth 4 times inhalerIndications: daily as Shortness of breath needed for Wheezing. Active aspirin 81 mg delayed Take 1 tablet 90 tablet 2 release tablet by mouth 8 daily. Active ketoconazole (NIZORAL) 2 Apply to 30 g 3 % topical affected area 8 creamIndications: Fungal 2 times toenail infection daily. Active cyclobenzaprine Take 1 tablet 7 tablet 1 (FLEXERIL) 10 mg by mouth 9 tabletIndications: nightly at Lateral epicondylitis of bedtime as left elbow needed for Muscle Spasms. Active naproxen (NAPROSYN) 375 Take 1 tablet 40 tablet 1 mg tabletIndications: by mouth 2 9 Lateral epicondylitis of times daily left elbow (with meals). Active atorvastatin (LIPITOR) 20 Take 1 tablet 90 tablet 1 mg tabletIndications: by mouth at 9 Hyperlipidemia, bedtime unspecified nightly. hyperlipidemia type Active cetirizine (ZYRTEC) 10 mg Take 1 tablet 90 tablet 1 tabletIndications: Upper by mouth 9 respiratory tract daily. infection, unspecified type Active atenolol (TENORMIN) 25 mg Take 1 tablet 180 tablet 1 tabletIndications: by mouth 2 9 History of atrial times daily. fibrillation 04/05/2018 Discontinued cetirizine (ZYRTEC) 10 mg Take 1 tablet 90 tablet 1 tablet by mouth 7 daily. 07/05/2017 Discontinued rivaroxaban (XARELTO) 20 Take 1 tablet 90 tablet 1 mg tabletIndications: by mouth 7 Anticoagulation daily (with monitoring, INR range 2-3 dinner). 10/16/2017 Discontinued amiodarone (CORDARONE) Take 1 tablet 120 tablet 1 200 mg tabletIndications: by mouth 2 8 History of atrial times daily. fibrillation 01/10/2018 Discontinued atenolol (TENORMIN) 25 mg Take 1 tablet 180 tablet 1 tabletIndications: by mouth 2 8 History of atrial times daily. fibrillation 04/05/2018 Discontinued cetirizine (ZYRTEC) 10 mg Take 1 tablet 90 tablet 1 tabletIndications: by mouth 8 Sinusitis, unspecified daily. chronicity, unspecified location 08/02/2017 Discontinued cyclobenzaprine Take 1 tablet 7 tablet 1 (FLEXERIL) 10 mg by mouth 8 tabletIndications: nightly at Musculoskeletal neck pain bedtime as needed for Muscle Spasms. 06/02/2017 fluticasone (FLONASE) 50 Use 1 [place] 16 g 4 mcg/actuation nasal in each 8 sprayIndications: nostril daily Allergic rhinitis, for 30 days. unspecified chronicity, unspecified seasonality, unspecified trigger 10/16/2017 Discontinued rivaroxaban (XARELTO) 20 Take 1 tablet 90 tablet 1 mg tabletIndications: by mouth 8 Anticoagulation daily (with monitoring, INR range 2-3 dinner). 01/10/2018 Discontinued cyclobenzaprine Take 1 tablet 7 tablet 1 (FLEXERIL) 10 mg by mouth 8 tabletIndications: nightly at Musculoskeletal neck pain bedtime as needed for Muscle Spasms. 01/08/2018 Discontinued sildenafil citrate Take 1 tablet 20 tablet 0 (VIAGRA) 100 mg by mouth as 8 tabletIndications: needed for Drug-induced erectile Erectile dysfunction Dysfunction. 04/05/2018 Discontinued azithromycin (ZITHROMAX) Take 1 tablet 5 tablet 0 500 mg tabletIndications: by mouth 8 Bronchitis, not specified daily. as acute or chronic 01/10/2018 Discontinued naproxen (NAPROSYN) 375 Take 1 tablet 40 tablet 1 mg tabletIndications: by mouth 2 8 Plantar fasciitis, left times daily (with meals). 02/07/2018 sildenafil citrate Take 1 tablet 20 tablet 0 (VIAGRA) 100 mg by mouth as 8 tabletIndications: needed for up Drug-induced erectile to 30 days dysfunction for Erectile Dysfunction. 04/05/2018 Discontinued naproxen (NAPROSYN) 375 Take 1 tablet 40 tablet 1 mg tabletIndications: by mouth 2 8 Elbow pain, chronic, left times daily (with meals). 04/05/2018 Discontinued cyclobenzaprine Take 1 tablet 7 tablet 1 (FLEXERIL) 10 mg tablet by mouth 8 nightly at bedtime as needed for Muscle Spasms. 04/05/2018 Discontinued atenolol (TENORMIN) 25 mg Take 1 tablet 180 tablet 1 tabletIndications: by mouth 2 8 History of atrial times daily. fibrillation 04/05/2018 Discontinued atorvastatin (LIPITOR) 20 Take 1 tablet 90 tablet 1 mg tabletIndications: by mouth at 8 Hyperlipidemia, bedtime unspecified nightly. hyperlipidemia type 04/17/2018 Discontinued azithromycin (ZITHROMAX) Take 1 tablet 5 tablet 0 500 mg tabletIndications: by mouth 9 Upper respiratory tract daily. infection, unspecified type 04/23/2018 oseltamivir (TAMIFLU) 75 Take 1 10 capsule 0 mg capsuleIndications: capsule by 9 Exposure to influenza, mouth 2 times Flu-like symptoms daily for 5 days. Status Hospital, Clinic, or Ordered Dose Route Frequency Start End Date Other Facility Date Administered Medication Ended lidocaine 1 % (XYLOCAINE) 1 mL IJ ONCE 11/25/19 injection 1 18 8 mLIndications: Lateral epicondylitis of left elbow Ended triamcinolone acetonide 20 mg IX ONCE 11/25/19 (KENALOG-40) injection 20 18 8 mgIndications: Lateral epicondylitis of left elbow Active Problems Problem Noted Date Elbow pain, chronic, left 01/10/2018 Renal calculus 03/08/2017 Tick bite 11/14/2016 Irritant contact dermatitis 11/14/2016 Contact with and (suspected) exposure to viral hepatitis- partner has 11/14/2016 hepatitis - to use condoms Environmental allergies 11/14/2016 Low serum calcium - nephrolithiasis hist - no supplementation advised 10/10/2016 Non-smoker 10/05/2016 Overweight (BMI 25.0-29.9) 10/05/2016 Sleep apnea- using cpap -helping ; BP controlled 10/05/2016 Stress headaches- spouse s/p coma with memory speech issues - needs asst 12/23/2015 with ADLs Lateral epicondylitis of right elbow 09/17/2015 Alcohol use 05/05/2015 Nephrolithiasis- christy non obstructing 05/05/2015 Hyperplastic polyp of large intestine-Repeat colonoscopy 202401/31/2015 History of asthma 09/22/2014 Allergic rhinitis 09/22/2014 Skin lesion- 1.5 cm left upper abd/chest area-compressible 09/22/2014 History of atrial fibrillation- paroxysmal - on xeralto , amiodarone and 09/22/2014 atenolol as of 05/2017 -ref to cardiology done ; holter and TTE completed Stress- self issues and caregiver issues 09/22/2014 Hematochezia 09/22/2014 Obesity 09/22/2014 Resolved Problems Problem Noted Date Resolved Date Acute midline low back pain without sciatica 01/10/2018 04/05/2018 Encounters Care Team Description Date Type Specialty Rosalva Kilgore MD Exposure to influenza (Primary Dx); Flu-like symptoms 04/17/2018 Office Visit Family Practice Rosalva Kilgore MD Hyperlipidemia, unspecified hyperlipidemia type 04/12/2018 Lab Appointment Lab Rosalva Kilgore MD Essential hypertension (Primary Dx); History of atrial fibrillation; Dietary counseling for Above / Below Normal BMI; Exercise counseling for Above Normal BMI Only!; Hyperlipidemia, unspecified hyperlipidemia type; Upper respiratory tract infection, unspecified type; Lateral epicondylitis of left elbow 04/05/2018 Office Visit Family Practice 04/05/2018 Travel Sallie Agustin RN 02/07/2018 Nurse Triage [place] [facility] Results 01/26/2018 Telephone [facility] Velia Mcgee DPM Fungal toenail infection (Primary Dx) 01/23/2018 Orders Only Podiatry Rosalva Kilgore MD Results 01/22/2018 Telephone [facility] Velia Mcgee DPM Fungal toenail infection (Primary Dx); Plantar fasciitis 01/16/2018 Office Visit Podiatry Jerilyn Lorenz MD 01/11/2018 Hospital Encounter Rosalva Kilgore MD Elbow pain, chronic, left (Primary Dx); Acute midline low back pain without sciatica; History of atrial fibrillation 01/10/2018 Office Visit [facility] Jerilyn Lorenz MD Paroxysmal atrial fibrillation (Primary Dx); Drug-induced erectile dysfunction; Obstructive sleep apnea 01/08/2018 Office Visit Cardiology Epic, Generic Transmittal User Paroxysmal atrial fibrillation 01/08/2018 Orders Only Cardiology Frederic Roche MD Lateral epicondylitis of left elbow (Primary Dx) 11/24/2017 Office Visit [facility] Lady Hancock RN Other (returning patient call) 11/24/2017 Telephone Rosalva Kilgore MD Bronchitis, not specified as acute or chronic (Primary Dx); Plantar fasciitis, left 11/06/2017 Office Visit [facility] Rosalva Kilgore MD Pain of left heel 10/27/2017 Ancillary Radiology Procedure Rosalva Kilgore MD Lateral epicondylitis of left elbow (Primary Dx); Pain of left heel 10/26/2017 Office Visit Family Practice Rosalva Kilgore MD Pain of left heel; Lateral epicondylitis of left elbow 10/26/2017 Orders Only [facility] Jerilyn Lorenz MD Persistent atrial fibrillation (Primary Dx); Drug-induced erectile dysfunction 10/16/2017 Office Visit Cardiology Rosalva Kilgore MD Musculoskeletal neck pain 08/02/2017 Refill Family Practice Rosalva Kilgore MD Anticoagulation monitoring, INR range 2-3 07/05/2017 Refill [facility] Rosalva Kilgore MD History of atrial fibrillation- paroxysmal - on xeralto , amiodarone and atenolol as of 05/2017 -ref to cardiology done ; holter and TTE completed (Primary Dx); Vitamin D insufficiency 06/21/2017 Office Visit [facility] Rosalva Kilgore MD Anticoagulation monitoring, INR range 2-3 06/19/2017 Refill Family Practice after 05/20/2017 Immunizations Name Dates Previously Given Next Due Influenza Vaccine, 04/17/2018 (Deferred: Other - patient receiving Seasonal, Injectable treatment for flu today. ) Tdap (Tetanus Toxoid, 11/14/2016 Reduced Diphtheria Toxoid And Acellular Pertussis, Absorbed) Family History Medical History Relation Name Comments Other Brother shot to dearh Heart Brother Hypertension Brother Arthritis Father Cancer Father Hypertension Father Arthritis Mother Diabetes Sister Hypertension Sister Seizures Sister Relation Name Status Comments Brother Brother Brother Alive Daughter Alive Father Maternal Grandfather Maternal Grandmother Mother Paternal Grandfather Paternal Grandmother Sister Alive Sister Alive Sister Alive Social History Date Tobacco Use Types Packs/Day Years Used Never Smoker Smokeless Tobacco: Never Used Tobacco Cessation: Counseling Given: Yes Alcohol Use Drinks/Week oz/Week Comments Yes 0 Standard 0.0 socially drinks or equivalent Sex Assigned at Date Recorded Not on file Industry Job Start Date Occupation Not on file Not on file Not on file Travel End Travel History Travel Start No recent travel history available. Last Filed Vital Signs Time Taken Vital Sign Reading 04/17/2018 1:08 PM STOPPING BUILDER Blood Pressure 125/71 04/17/2018 1:08 PM STOPPING BUILDER Pulse 58 04/17/2018 1:08 PM STOPPING BUILDER Temperature 36.9 C (98.5 F) 04/17/2018 1:08 PM STOPPING BUILDER Respiratory Rate 16 - Oxygen Saturation - - Inhaled Oxygen - Concentration 04/17/2018 1:08 PM STOPPING BUILDER Weight 91.6 kg (202 lb) 04/17/2018 1:08 PM STOPPING BUILDER Height 168 cm (5' 6.14") 04/17/2018 1:08 PM STOPPING BUILDER Body Mass Index 32.46 Plan of Treatment Health Maintenance Due Date Last Done Comments Colonoscopy 10yr 01/27/2025 01/27/2015 Procedures Comments Procedure Name Priority Date/Time Associated Diagnosis LIVER PROFILE Routine 04/12/2018 Hyperlipidemia, 12:48 PM STOPPING BUILDER unspecified hyperlipidemia type ALT/AST Routine 01/22/2018 Fungal toenail infection 10:21 AM STOPPING BUILDER LIPID PROFILE Routine 01/22/2018 History of atrial 10:21 AM STOPPING BUILDER fibrillation COMPREHENSIVE METABOLIC Routine 01/22/2018 History of atrial PANEL(DBIL NOT INCLUDED) 10:21 AM STOPPING BUILDER fibrillation 24 HOUR HOLTER MONITOR Routine 01/11/2018 Paroxysmal atrial 11:52 AM STOPPING BUILDER fibrillation 12 LEAD EKG Routine 01/08/2018 Paroxysmal atrial 2:36 PM STOPPING BUILDER fibrillation XRAY OS CALCIS 2 VIEWS Routine 10/27/2017 Pain of left heel MIN 10:14 AM CDT 12 LEAD EKG Routine 10/16/2017 Persistent atrial 4:01 PM CDT fibrillation after 05/20/2017 Results * LIVER PROFILE (04/12/2018 12:48 PM STOPPING BUILDER) T Protein 6.3 6.0 - 8.3 g/dL BT MAIN-STATION 1 Albumin 3.9 (L) 4.2 - 5.5 g/dL BT MAIN-STATION 1 T Bilirubin 0.6 0.2 - 1.2 mg/dL BT MAIN-STATION 1 Alk Phos 71 34 - 104 U/L BT MAIN-STATION 1 AST 22 13 - 39 U/L BT MAIN-STATION 1 ALT 23 7 - 52 U/L BT MAIN-STATION 1 D Bilirubin 0.1 0.0 - 0.2 mg/dL BT MAIN-STATION 1 Specimen Blood Performing Organization Address [facility] MISYS [facility] 1 * COMPREHENSIVE METABOLIC PANEL(DBIL NOT INCLUDED) (01/22/2018 10:21 AM STOPPING BUILDER) Albumin 3.9 (L) 4.2 - 5.5 g/dL BT MAIN-STATION 1 Calcium 8.9 8.6 - 10.3 mg/dL BT MAIN-STATION 1 CO2 27 21 - 31 mmol/L BT MAIN-STATION 1 Chloride 108 (H) 98 - 107 mmol/L BT MAIN-STATION 1 Creatinine 0.90 0.7 - 1.3 mg/dL BT MAIN-STATION 1 Glucose 109 70 - 110 mg/dL BT MAIN-STATION 1 Alk Phos 66 34 - 104 U/L BT MAIN-STATION 1 Potassium 4.2 3.5 - 5.1 mmol/L BT MAIN-STATION 1 Sodium 142 136 - 145 mmol/L BT MAIN-STATION 1 ALT 19 7 - 52 U/L BT MAIN-STATION 1 AST 19 13 - 39 U/L BT MAIN-STATION 1 Urea Nitrogen 24 7 - 25 mg/dL BT MAIN-STATION 1 T Bilirubin 0.4 0.2 - 1.2 mg/dL BT MAIN-STATION 1 T Protein 6.2 6.0 - 8.3 g/dL BT MAIN-STATION 1 GFR, Estimated >60 mL/min/1.73 m2 BT MAIN-STATION 1 GFR, Estim, >60 mL/min/1.73 m2 BT MAIN[facility]STATION Afr-Am 1 Anion Gap 7 BT MAIN-STATION 1 Specimen Blood Performing Organization Address [facility] Number MISYS [facility] 1 * LIPID PROFILE (01/22/2018 10:21 AM STOPPING BUILDER) Cholesterol 207 mg/dL BT MAIN[facility]STATION Comment: 1 REFERENCE RANGE: Desirable: <200 mg/dL Borderline: 200-240 mg/dL High Risk: >240 mg/dL Triglyceride 99 <150 mg/dL BT MAIN[facility]STATION Comment: 1 REFERENCE RANGE: Normal: <150 mg/dL Borderline High: 150-199 mg/dL High: 200-499 mg/dL Very High: >vv=592 mg/dL HDL 55 mg/dL BT MAIN[facility]STATION Comment: 1 Increased CHD risk: <40 mg/dL Decreased CHD risk: >60 mg/dL LDL 132 mg/dL BT MAIN[facility]STATION Comment: 1 REFERENCE RANGE: Optimal: <100 mg/dL Near Optimal: 100-129 mg/dL Borderline High: 130-159 mg/dL High: 160-189 mg/dL Very High: >ek=395 mg/dL Specimen Blood Performing Organization Address [facility] [place] Phone Number MISYS BT [facility] 1 * ALT/AST (01/22/2018 10:21 AM STOPPING BUILDER) ALT 18 7 - 52 U/L BT MAIN-STATION 1 AST 19 13 - 39 U/L BT MAIN-STATION 1 Specimen Blood Performing Organization Address [facility] Number MISYS BT [facility] 1 * 24 HOUR HOLTER MONITOR (01/11/2018 11:52 AM STOPPING BUILDER) 24 HOUR HOLTER SMS MONITOR [facility] Test Date:2018-01-11 Pat Name: CHANNING [place] partment: [facility] Room: Gender: Airplane Electrical Repairer: JORDAN SEPULVEDA [facility] :1961-0 8-24 Requested By: JERILYN LORENZ Order Number: [id number] Reading MD: Ariel Zhao Interpretive Statements 24 hour Holter monitor performed for evaluation of atrial fibrillation. A single reported event of shortness of breath was documented by patient. The monitoring started at 11:52:19 AM and was continued for 23 hr 51 min. The total number of beats was [id number] with a total analysis duration of 23 hr 27 min. The average heart rate was 70 BPM, with the minimum rate, 55 BPM, occurring at 5:43:20 AM, and the maximum rate, 113 BPM, occurring at 10:50:58 PM. Normal diurnal variation. No atrial fibrillation detected. Baseline rhythm is normal sinus. 32 singlet PVCs detected. No couplets, runs, or sustained ventricular ectopy. 5 singlet PACs detected. No couplets, runs, or sustained supraventricular ectopy. No pauses > 2 seconds. The shortness of breath episode occurred at 1050pm during which time patient was in normal sinus rhythm with heart rate at ~100. CONCLUSION Essentially normal 24 hour Holter with rare PVCs and PACs. No detected atrial fibrillation. Patient's episode of shortness of breath did not correlate to any arrhythmias. Electronically Signed On 01-17-2018 8:36:15 STOPPING BUILDER by Ariel Zhao Performing Organization Address City[facility] Phone Number SMS * 12 LEAD EKG (01/08/2018 2:36 PM STOPPING BUILDER) 12 LEAD EKG FOR SMS [facility] Loi Lazo [facility] Test Date:2018-01-08 Pat Name: CHANNING Gilliland partment: Room: Gender: M Airplane Electrical Repairer: [id number] :1961-0 10-20 Requested By: Order Number: Daya john MD: NARA KAPLAN Measurements Intervals [place] Rate: 72 P:59 MA: 148 QRS: 35 QRSD: 92 T:11 QT: 371 QTc:408 Interpretive Statements SINUS RHYTHM WITH SINUS ARRHYTHMIA NONSPECIFIC T-WAVE ABNORMALITY Electronically Signed On 01-08-18 20:43:50 STOPPING BUILDER by NARA KAPLAN Performing Organization Address [place]/[facility] Number SMS * XRAY OS CALCIS 2 VIEWS MIN (10/27/2017 10:14 AM CDT) Impressions Performed At IMPRESSION: SMS No acute radiographic abnormality. Dictated By: Amanda Ojeda MD, 10/27/2017 10:13 AM I have reviewed the study and agree with the findings in this report. Signed By: Aly Bentley MD, 10/27/2017 10:33 AM Narrative Performed At EXAM: LEFT XRAY OS CALCIS 2 VIEWS MIN SMS CLINICAL INDICATION:heel pain COMPARISON: None. DISCUSSION: No fracture or dislocation. Os trigonum. Plantar calcaneal spur. Mild degenerative changes of the talotibial joint. No abnormal soft tissue calcification or soft tissue defect. Procedure Note Interface, Rad/Mammog In - 10/27/2017 10:38 AM CDT EXAM: LEFT XRAY OS CALCIS 2 VIEWS MIN CLINICAL INDICATION: heel pain COMPARISON: None. DISCUSSION: No fracture or dislocation. Os trigonum. Plantar calcaneal spur. Mild degenerative changes of the talotibial joint. No abnormal soft tissue calcification or soft tissue defect. IMPRESSION IMPRESSION: No acute radiographic abnormality. Dictated By: Amanda Ojeda MD, 10/27/2017 10:13 AM I have reviewed the study and agree with the findings in this report. Signed By: Aly Bentley MD, 10/27/2017 10:33 AM Performing Organization Address City/State/Zipcode Phone Number SMS * 12 LEAD EKG (10/16/2017 4:01 PM CDT) 12 LEAD EKG FOR SMS [facility] Lo[facility] Lazo [facility] Test Date:2017-10-16 Pat Name: CHANNING Gillil[place] partment: Room: Gender: Airplane Electrical Repairer: Daya CONTI [id number] :1961-0 10-20 Requested By: Order Number: Daya john MD: Darryn De La Cruz Measurements Intervals [place] Rate: 60 P:53 MA: 125 QRS: 15 QRSD: 79 T:20 QT: 403 QTc:403 Interpretive Statements SINUS RHYTHM Electronically Signed On 10-17-17 09:16:19 CDT by Darryn De La Cruz Performing Organization Address [facility] Phone Number SMS after 05/20/2017 Insurance Type Payer Benefit Subscriber ID Effective Phone Address Plan / Dates Group [facility] xxxxxxx 2017- [phone] [address] [employer] 2018 [id number] [place], [place] [address]
[2018-05-21] MEDS ORDERED: ASPIRIN 81 MG CHEW TAB PO STA (23:28)
[2018-05-21] MEDS ORDERED: ASPIRIN 81 MG CHEW TAB PO ONE (23:30)
--- NOTE | 2018-05-22 00:04 | Diagnostic Imaging Report ---
EXAMINATION: CHEST SINGLE (PORTABLE) INDICATION: CHEST PAIN COMPARISON: Chest x-ray 07/29/2017 FINDINGS: AP view TUBES and LINES: None. LUNGS: There is no evidence of pneumonia or pulmonary edema. PLEURA: No pleural effusion or pneumothorax. HEART AND MEDIASTINUM: The cardiomediastinal silhouette is unremarkable. BONES AND SOFT TISSUES: No acute osseous lesion. Soft tissues are unremarkable. UPPER ABDOMEN: No free air under the diaphragm. IMPRESSION: No acute thoracic abnormality. Signed by: DR. Sean Curiel MD on 05/22/2018 12:00 AM
[2018-05-22 00:41] LABS: BASOPHILS % 0.4 % (0.0-1.0); EOSINOPHILS # (AUTO) 0.2 (0.0-0.4); HEMATOCRIT 41.1 % (38.2-49.6); HEMOGLOBIN 15.2 g/dL (14.0-18.0); LYMPHOCYTES # (AUTO) 2.1 (1.0-3.2); LYMPHOCYTES % 42.4 % (18.0-39.1); MEAN CORPUSCULAR HEMOGLOBIN 32.9 pg (28-32); MONOCYTES # (AUTO) 0.6 (0.2-0.8); MONOCYTES % 11.6 % (4.4-11.3); NEUTROPHILS # (AUTO) 2.1 (2.1-6.9); NEUTROPHILS % 42.4 % (38.7-80.0); PLATELET COUNT 168 x10e3/uL (140-360); RED BLOOD COUNT 4.62 x10e6/uL (4.3-5.7); RED CELL DISTRIBUTION WIDTH 11.9 % (11.7-14.4)
[2018-05-22 00:53] LABS: INR 0.92; PROTHROMBIN TIME 12.8 seconds (11.9-14.5)
[2018-05-22 00:54] LABS: PARTIAL THROMBOPLASTIN TIME 27.8 seconds (23.8-35.5)
[2018-05-22 01:02] LABS: ALANINE AMINOTRANSFERASE 28 IU/L (0-55); ALBUMIN 3.9 g/dL (3.5-5.0); ALBUMIN/GLOBULIN RATIO 1.1 (0.8-2.0); ALKALINE PHOSPHATASE 82 IU/L (40-150); ANION GAP 13.5 mmol/L (8-16); BLOOD UREA NITROGEN 21 mg/dL (7-26); BUN/CREATININE RATIO 23 (6-25); CARBON DIOXIDE 23 mmol/L (22-29); CHLORIDE 107 mmol/L (98-107); CREATINE KINASE 426 IU/L (30-200); CREATININE, SERUM 0.92 mg/dL (0.72-1.25); EST GLOMERULAR FILTRATION RATE > 60 ML/MIN (60-); GLUCOSE 122 mg/dL (74-118); POTASSIUM 3.5 mmol/L (3.5-5.1); SODIUM 140 mmol/L (136-145)
[2018-05-22] MEDS ORDERED: DILTIAZEM HCL 5 MG/ML 5 ML VIAL IV ONE (02:00)
[2018-05-22] MEDS ORDERED: SODIUM CHLORIDE 0.9% 1000ML 1,000 ML ONE (02:06)
[2018-05-22] MEDS ORDERED: SODIUM CHLORIDE 0.9% 1000ML 1,000 ML IV ONE (02:15)
[2018-05-22 04:05] LABS: CLARITY,URINE CLEAR (CLEAR); COLOR,URINE YELLOW (YELLOW)
[2018-05-22 04:06] LABS: KETONES,URINE NEGATIVE (NEGATIVE); LEUKOCYTE ESTERASE ,URINE NEGATIVE (NEGATIVE); NITRITE,URINE NEGATIVE (NEGATIVE); PROTEIN,URINE DIPSTICK NEGATIVE (NEGATIVE); URINE UROBILINOGEN 0.2 mg/dL (0.2 - 1)
[2018-05-22 04:07] LABS: BILIRUBIN,URINE NEGATIVE (NEGATIVE)
[2018-05-22 04:25] LABS: BACTERIA,URINE FEW /HPF; EPITHELIAL CELLS,URINE MODERATE /LPF; RBC,URINE 0-5 /HPF (0-5); WBC,URINE (MAN) 0-5 /HPF (0-5)
[2018-05-22] MEDS ORDERED: DILTIAZEM HCL 5 MG/ML 5 ML VIAL IV STA ×2 (04:30→06:25)
[2018-05-22] MEDS ORDERED: LACTATED RINGER'S 1,000 ML IV SCH (04:31)
[2018-05-22] MEDS ORDERED: ATENOLOL 50 MG TAB PO STA (04:31)
[2018-05-22] MEDS ORDERED: ONDANSETRON HCL INJ 2MG/ML 2ML 2 MG/ML VIAL IV PRN (04:45)
[2018-05-22] MEDS ORDERED: DIPHENHYDRAMINE HCL INJ 50 MG/ML VIAL IV PRN (04:45)
[2018-05-22] MEDS ORDERED: ACETAMINOPHEN 325 MG TAB PO PRN (04:45)
[2018-05-22] MEDS ORDERED: ZOLPIDEM TARTRATE 5 MG TAB PO PRN (04:45)
[2018-05-22] MEDS ORDERED: IBUPROFEN 200 MG TAB PO PRN (04:45)
--- OUTSIDE RECORDS SUMMARY | 2018-05-22 05:02 | XMS REPORT | Clinical Summary ---
Author Author [facility] Organization [facility] Address Unknown Phone Unavailable Care Team Providers Care Seat Builder Name Role Phone Rosalva Kilgore MD PCP [...] Spasms. 06/02/2017 fluticasone (FLONASE) 50 Use 1 [place] 16 g 4 mcg/actuation nasal in each [...] Flu-like symptoms 04/17/2018 Office Visit Family Practice Roslava Kilgore MD Hyperlipidemia, unspecified hyperlipidemia type 04/12/2018 [...] Triage [place] [facility] Results 01/26/2018 Telephone [facility] Velia Mcgee DPM Fungal toenail infection (Primary Dx) 01/23/2018 Orders Only Podiatry Rosalva Kilgore MD Results 01/22/2018 Telephone [facility] Velia Mcgee DPM Fungal toenail infection (Primary Dx); Plantar fasciitis 01/16/2018 Office Visit Podiatry Jerilyn Lorenz MD 01/11/2018 Hospital Encounter Rosalva Kilgore MD Elbow pain, chronic, left (Primary Dx); Acute midline low back pain without sciatica; History of atrial fibrillation 01/10/2018 Office Visit [facility] Jerilyn Lorenz MD Paroxysmal atrial fibrillation (Primary Dx); Drug-induced erectile dysfunction; Obstructive sleep apnea 01/08/2018 Office Visit Cardiology Epic, Generic Transmittal User Paroxysmal atrial fibrillation 01/08/2018 Orders Only Cardiology Frederic Roche MD Lateral epicondylitis of left elbow (Primary Dx) 11/24/2017 Office Visit [facility] Lady Hancock RN Other (returning patient call) 11/24/2017 Telephone Rosalva Kilgore MD Bronchitis, not specified as acute or chronic (Primary Dx); Plantar fasciitis, left 11/06/2017 Office Visit [facility] Rosalva Kilgore MD Pain of left heel 10/27/2017 Ancillary Radiology Procedure Rosalva Kilgore MD Lateral epicondylitis of left elbow (Primary Dx); Pain of left heel 10/26/2017 Office Visit Family Practice Rosalva Kilgore MD Pain of left heel; Lateral epicondylitis of left elbow 10/26/2017 Orders Only [facility] Jerilyn Lorenz MD Persistent atrial fibrillation (Primary Dx); Drug-induced erectile dysfunction 10/16/2017 Office Visit Cardiology Rosalva Kilgore MD Musculoskeletal neck pain 08/02/2017 Refill Family Practice Rosalva Kilgore MD Anticoagulation monitoring, INR range 2-3 07/05/2017 Refill [facility] Rosalva Kilgore MD History of atrial fibrillation- paroxysmal - on xeralto , amiodarone and atenolol as of 05/2017 -ref to cardiology done ; holter and TTE completed (Primary Dx); Vitamin D insufficiency 06/21/2017 Office Visit [facility] Rosalva Kilgore MD Anticoagulation monitoring, INR range 2-3 06/19/2017 Refill Family Practice after 05/21/2017 Immunizations Name Dates Previously Given Next Due [...] Taken Vital Sign Reading 04/17/2018 1:08 PM CHECK OUT CLERK Blood Pressure 125/71 04/17/2018 1:08 PM CHECK OUT CLERK Pulse 58 04/17/2018 1:08 PM CHECK OUT CLERK Temperature 36.9 C (98.5 F) 04/17/2018 1:08 PM CHECK OUT CLERK Respiratory Rate 16 - Oxygen Saturation - - Inhaled Oxygen - Concentration 04/17/2018 1:08 PM CHECK OUT CLERK Weight 91.6 kg (202 lb) 04/17/2018 1:08 PM CHECK OUT CLERK Height 168 cm (5' 6.14") 04/17/2018 1:08 PM CHECK OUT CLERK Body Mass Index 32.46 Plan of Treatment Health Maintenance Due Date Last Done Comments Colonoscopy 10yr 01/27/2025 01/27/2015 Procedures Comments Procedure Name Priority Date/Time Associated Diagnosis LIVER PROFILE Routine 04/12/2018 Hyperlipidemia, 12:48 PM CHECK OUT CLERK unspecified hyperlipidemia type ALT/AST Routine 01/22/2018 Fungal toenail infection 10:21 AM CHECK OUT CLERK LIPID PROFILE Routine 01/22/2018 History of atrial 10:21 AM CHECK OUT CLERK fibrillation COMPREHENSIVE METABOLIC Routine 01/22/2018 History of atrial PANEL(DBIL NOT INCLUDED) 10:21 AM CHECK OUT CLERK fibrillation 24 HOUR HOLTER MONITOR Routine 01/11/2018 Paroxysmal atrial 11:52 AM CHECK OUT CLERK fibrillation 12 LEAD EKG Routine 01/08/2018 Paroxysmal atrial 2:36 PM CHECK OUT CLERK fibrillation XRAY OS CALCIS 2 VIEWS Routine 10/27/2017 Pain of left heel MIN 10:14 AM CDT 12 LEAD EKG Routine 10/16/2017 Persistent atrial 4:01 PM CDT fibrillation after 05/21/2017 Results * LIVER PROFILE (04/12/2018 12:48 PM CHECK OUT CLERK) T Protein 6.3 6.0 - 8.3 g/dL [...] MAIN-STATION 1 Specimen Blood Performing Organization Address [facility] Phone Number MISYS BT MAIN-STATION 1 * COMPREHENSIVE METABOLIC PANEL(DBIL NOT INCLUDED) (01/22/2018 10:21 AM CHECK OUT CLERK) Albumin 3.9 (L) 4.2 - 5.5 g/dL [...] MAIN-STATION 1 Specimen Blood Performing Organization Address [facility] Phone Number MISYS BT MAIN-STATION 1 * LIPID PROFILE (01/22/2018 10:21 AM CHECK OUT CLERK) Cholesterol 207 mg/dL BT MAIN-STATION Comment: 1 REFERENCE RANGE: Desirable: <200 mg/dL Borderline: 200-240 mg/dL High Risk: >240 mg/dL Triglyceride 99 <150 mg/dL BT MAIN-STATION Comment: 1 REFERENCE RANGE: Normal: <150 mg/dL Borderline High: 150-199 mg/dL High: 200-499 mg/dL Very High: >ph=958 mg/dL HDL 55 mg/dL BT MAIN-STATION Comment: 1 Increased CHD risk: <40 mg/dL Decreased CHD risk: >60 mg/dL LDL 132 mg/dL BT MAIN-STATION Comment: 1 REFERENCE RANGE: Optimal: <100 mg/dL Near Optimal: 100-129 mg/dL Borderline High: 130-159 mg/dL High: 160-189 mg/dL Very High: >ls=337 mg/dL Specimen Blood Performing Organization Address [facility] Phone Number MISYS BT MAIN-STATION 1 * ALT/AST (01/22/2018 10:21 AM CHECK OUT CLERK) ALT 18 7 - 52 U/L BT MAIN-STATION 1 AST 19 13 - 39 U/L BT MAIN-STATION 1 Specimen Blood Performing Organization Address [facility] Phone Number MISYS BT MAIN-STATION 1 * 24 HOUR HOLTER MONITOR (01/11/2018 11:52 AM CHECK OUT CLERK) 24 HOUR HOLTER SMS MONITOR [facility] Test Date:2018-01-11 Pat Name: CHANNING Gilliland partment: [facility] Room: Gender: Floor Scraper: JORDAN SEPULVEDA [facility] :1961-0 8-24 Requested By: JERILYN LORENZ Order Number: [id number] Reading MD: Ariel Zhao Interpretive Statements 24 hour Holter monitor performed for evaluation of atrial fibrillation. A single reported event of shortness of breath was documented by patient. The monitoring started at 11:52:19 AM and was continued for 23 hr 51 min. [place] of beats [place] [id number] with a total analysis duration of 23 [...] any arrhythmias. Electronically Signed On 01-17-2018 8:36:15 CHECK OUT CLERK by Ariel Zhao Performing Organization Address [facility] Phone Number SMS * 12 LEAD EKG (01/08/2018 2:36 PM CHECK OUT CLERK) 12 LEAD EKG FOR SMS CHP Loi Lazo [facility] Test Date:2018-01-08 Pat Name: CHANNING Gilliland partment: Room: Gender: M Floor Scraper: [id number] :1961-0 10-20 Requested By: Order Number: Daya john MD: NARA KAPLAN Measurements Intervals [place] Rate: 72 P:59 SC: 148 QRS: 35 QRSD: 92 T:11 QT: 371 QTc:408 Interpretive Statements SINUS RHYTHM WITH SINUS ARRHYTHMIA NONSPECIFIC T-WAVE ABNORMALITY Electronically Signed On 01-08-18 20:43:50 CHECK OUT CLERK by NARA KAPLAN Performing Organization Address [place]/[facility] Phone Number SMS * XRAY OS CALCIS [...] CDT) 12 LEAD EKG FOR SMS CHP Bliss ZanaGeneva [facility] Test Date:2017-10-16 Pat Name: CHANNING Gilliland partment: Room: Gender: Floor Scraper: Daya CONTI [id number] :1961-0 10-20 Requested By: Order Number: Daya john MD: Darryn De La Cruz Measurements Intervals [place] Rate: 60 P:53 SC: 125 QRS: 15 QRSD: 79 T:20 QT: 403 QTc:403 Interpretive Statements SINUS RHYTHM Electronically Signed On 10-17-17 09:16:19 CDT by Darryn De La Cruz Performing Organization Address City/[facility] Phone Number SMS after 05/21/2017
[2018-05-22] MEDS: FAMOTIDINE 20 MG TAB PO SCH ×2 (06:52→17:41)
--- NOTE | 2018-05-22 07:10 | NUR ---
REPORT GIVEN TO ARTIS MURILLO DAY SHIFT NURSE.
[2018-05-22] MEDS ORDERED: ENOXAPARIN INJ 80 MG/0.8 ML SYR SC SCH (09:00)
[2018-05-22 09:11] LABS: CREATINE KINASE MB 3.6 ng/mL (0-5.0)
--- NOTE | 2018-05-22 09:12 | NUR ---
DR. ARGUETA AT BEDSIDE AT THIS TIME.
[2018-05-22] MEDS ORDERED: ATENOLOL 50 MG TAB PO NR (14:30)
--- NOTE | 2018-05-22 14:35 | NUR ---
DR. Sigifredo TRIMBLE AT BEDSIDE AT THIS TIME FOR PATIENT EVAL, AWAITING ORDERS.
--- NOTE | 2018-05-22 15:48 | History and Physical ---
HISTORY OF PRESENT ILLNESS: Mr. Feng is a 57-year-old man with history of atrial fibrillation, sleep apnea, hypertension, CPAP dependence. He is taking only atenolol and aspirin. He states last night when he got home, he started having palpitations, shortness of breath, and chest pain, so he decided to come to the emergency room. PAST MEDICAL HISTORY: Sleep apnea, CPAP dependent, recurrent episodes of atrial fibrillation, hypertension. ALLERGIES: APPARENTLY, HE IS ALLERGIC TO PENICILLIN. SURGICAL HISTORY: He denies. SOCIAL HISTORY: He does not smoke, but he drinks occasionally. PHYSICAL EXAMINATION: GENERAL: Today, he is awake and alert. VITAL SIGNS: Temperature is 99. Blood pressure 94/62. HEART: Irregularly irregular. It goes up from 80 per minute to 130 per minute. LUNGS: Clear to auscultation. ABDOMEN: Distended and soft. LABORATORY DATA: Potassium 3.5, creatinine is 0.92, glucose is 122. White count 502, hemoglobin is 15.2, hematocrit is 41.1. Chest x-ray shows no acute thoracic abnormalities. Cardiac enzymes, troponin x2 has been negative. ASSESSMENT AND PLAN: 1. Atrial fibrillation with rapid ventricular rate. 2. Hypertension. 3. Sleep apnea. 4. CPAP dependence. 5. Anxiety. The plan at present time is to get a cardiology consult with Dr. Yi. He is on Lovenox 80 mg subcu q.12 hours. He is on famotidine 20 mg twice a day. He has been only taking aspirin at home. We will discuss with knocker off. For the treatment of his atrial fibrillation, he used to take Coumadin, he has not been taking it any more. He used to take amiodarone, but he is not on amiodarone any longer. All this was discussed with the patient. All questions were answered to satisfaction. MD MONIE Henriquez/ANNE /[id number]
--- NOTE | 2018-05-22 15:48 | NUR ---
ECHO AT BEDSIDE AT THIS TIME.
[2018-05-22] MEDS ORDERED: RIVAROXABAN 20 MG TABLET PO SCH (17:00)
[2018-05-22 17:15] VITALS: BP 117/66
--- NOTE | 2018-05-22 17:15 | NUR ---
PATIENT RECEIVED FROM ER PER WHEEL CHAIR. ALERT AND VERBALLY RESPONSIVE, TRANSFERRED SELF FROM CHAIR TO BED, SITTING AT BED SIDE . DENIED PAIN OR DISCOMFORT AT THIS TIME. SKIN WARM AND DRY TO TOUCH, RESPIRATION EVEN AND UNLABORED. ABDOMEN SOFT AND ROUND. ALL PERSONAL ITEMS CLOSE TO PATIENT. BED IN LOWER POSITION, CALL LIGHT AT REACH. INSTRUCTED TO CALL FOR ASSISTANCE NEEDED.
[2018-05-22 17:22] LABS: CREATINE KINASE 254 IU/L (30-200)
[2018-05-22 17:33] VITALS: BP 117/66
[2018-05-22] MEDS: DRONEDARONE 400 MG TAB PO SCH (17:41)
--- NOTE | 2018-05-22 19:23 | NUR ---
Received report from previous nurse. Patient A&Ox3. No distress noted. Call light within reach. Family at bedside
[2018-05-22 20:00] VITALS: BP 118/78
--- NOTE | 2018-05-22 23:31 | Consultation ---
DATE OF CONSULTATION: 05/22/2018 Cardiology Consultation REASON FOR CONSULTATION: Paroxysmal atrial fibrillation. HISTORY OF PRESENT ILLNESS: Mr. Feng is a 57-year-old gentleman with a past medical history of paroxysmal atrial fibrillation, symptomatic; obstructive sleep apnea, on CPAP therapy; hypertension; and mild intermittent asthma, who presents to this institution after noting a very fast heart rate after eating at [employer] yesterday. Symptoms started at 10 p.m. last night and felt a little bit lightheaded. He denied any chest pain or discomfort. He reported he is feeling his heart racing. He established care with a shelter advocate at [facility], who had noted that he had been on amiodarone therapy, however, for unclear reasons, this was stopped. He had been also on Xarelto therapy for thromboembolic prophylaxis, however, he was asked to stop by this shelter advocate and was placed on aspirin daily. He is put on atenolol for rate control and nonetheless, the patient deteriorated yesterday and was noted to be in RVR with heart rates in the 140s to 150s in the emergency room. Currently, persistent AFib with heart rates in the 90s during my visit today. PAST MEDICAL HISTORY: 1. Hypertension. 2. Paroxysmal atrial fibrillation, initially diagnosed in 2010 as noted above. 3. Obstructive sleep apnea, has a home CPAP machine. 4. History of mild intermittent asthma. 5. History of peptic ulcer disease 20 years ago with prior history of GI bleeding without any recurrence. 6. Erectile dysfunction. PAST SURGICAL HISTORY: 1. History of hemorrhoidectomy 17 years ago. 2. History of left patellofemoral surgery. 3. History of left carpal tunnel surgery. FAMILY HISTORY: Mother at 75 with complications of hepatitis, father at 78 with a brain tumor and from lung cancer. SOCIAL HISTORY: Denies smoking. Reports occasional alcohol on the weekends. Denies any illicit drug use. ALLERGIES: PENICILLIN CAUSES RASH. CURRENT MEDICATIONS: Home medication includes atenolol 25 mg b.i.d. and aspirin 325 mg daily. REVIEW OF SYSTEMS: GENERAL: Positive for fatigue and malaise. Denies any fevers or chills. HEENT: No visual complaints, occasional headaches, no stuffiness or sore throat. RESPIRATORY: Denies any pleuritic chest pain, had a little bit of shortness of breath with a rapid heart rate. CARDIOVASCULAR: As per HPI. GI: Denies any abdominal pain, bright-red blood per rectum, melena, or hematemesis. HEMATOLOGY: No easy bruising or bleeding. : Denies any dysuria or pyuria. MUSCULOSKELETAL: Denies any back pain or swelling. SKIN: No rashes. ID: No known infectious history. NEUROLOGIC: Denies any focal weakness, numbness, tingling, seizures, history of TIA, or stroke. PHYSICAL EXAMINATION: VITAL SIGNS: Height of 66 inches, weight of 190 pounds, BMI is 30.7. Temperature of 98.3, pulse of 95, respiratory rate of 15, blood pressure of 115/89, and O2 sat 98% on room air. GENERAL: This is a well-nourished, well-developed gentleman, who is currently in no apparent distress. HEENT: Normocephalic, atraumatic. Pupils are equal, round, and reactive to light. Extraocular movements are intact. Oropharynx is clear. NECK: No elevation of jugular venous pulsation. No carotid bruits. CARDIOVASCULAR: Irregularly irregular rate and rhythm. Normal S1, S2. Systolic murmur 1/6 at the left lower sternal border. LUNGS: Clear to auscultation bilaterally. ABDOMEN: Soft, nontender, and nondistended. Normoactive bowel sounds. BACK: No costovertebral angle tenderness. EXTREMITIES: Warm with 2+ bilateral radial pulses, 1 to 2+ bilateral femoral pulses, 1+ pedal pulses. NEUROLOGIC: Cranial nerves II through XII are intact. Sensory, muscle strength 5/5 grossly nonfocal. LABORATORY DATA: White count of 5, hemoglobin of 15.2, hematocrit 41.1, platelets of 168. Sodium 140, potassium 3.5, chloride of 107, bicarb 23, BUN 21, creatinine 0.92, glucose of 122, calcium of 9.0. AST 32, ALT 28, alk phos 82. Total protein 7.6, albumin of 3.9, TSH is 0.499. Troponin one from 0.006 to 0.021. INR 0.92. UA is unremarkable. Chest x-ray is unremarkable. EKG reveals atrial fibrillation with rapid ventricular response. DIAGNOSES: 1. Symptomatic atrial fibrillation, paroxysmal. 2. Hypertension. 3. Obstructive sleep apnea, on CPAP therapy. 4. Obesity. PLAN/RECOMMENDATIONS: 1. From the cardiovascular standpoint, we had a very lengthy discussion in terms of atrial fibrillation. The fact that this is paroxysmal as well as I reiterated the natural history and risks and benefits towards various management options. 2. We will restart him on anticoagulation, on Xarelto. Stop subcu Lovenox. 3. We will restart rhythm control strategy and put him on Multaq 400 mg b.i.d. 4. We will continue atenolol for rate control therapy. 5. We will do echocardiogram to check his heart structurally. 6. The patient is clinically reasonable at the present time, likely should be able to go home soon. MD LADAN Rashid/ANNE /[id number]
[2018-05-23] VITALS: BP 104/67
[2018-05-23 01:00] VITALS: BP 104/64
[2018-05-23 04:00] VITALS: BP 118/67
[2018-05-23] MEDS: FAMOTIDINE 20 MG TAB PO SCH (04:22)
--- NOTE | 2018-05-23 07:09 | NUR ---
Gave report to oncoming nurse. NO pain or distress noted. Call light within reach.
[2018-05-23 07:25] VITALS: BP 121/80
[2018-05-23 08:16] VITALS: BP 121/80
[2018-05-23] MEDS: DRONEDARONE 400 MG TAB PO SCH (08:50)
--- NOTE | 2018-05-23 12:18 | NUR ---
SOCIAL WORK INITIAL ASSESSMENT Frame Stripper And Crusher to bedside to discuss plan of care with patient/family. CM/SW role and care transitions discussed. Anticipated discharge plan discussed along with duration of care. CM/SW discussed patients right to make decisions in care. CM/SW work hours given. Patient lives: IN HOUSE WITH FAMILY Admit/Transfer: VIA ED FROM HOME POA/Emergency contact: EX JODIE [phone] Current/Previous Home Health: NONE PCP/Follow-up Care: [facility] Current/Previous DME: NONE Other Services: HAS [employer] CARD Employment Status: NONE Areas of Concerns: NONE Referral Needs: SELF PACKET GAVE PACKET OF INFORMATION WITH COMM[employer]ITY [employer] FOR ASSISTANCE WITH LOW TO NO INCOME TO PATIENT. RESOURCES THAT PATIENT MAY BE ABLE TO FOLLOW UP UPON DISCHARGE. PT EDUCATED ON EACH RESOURCE AND UNDERSTANDING HOW TO FOLLOW UP TO SEE IF QUALIFIED FOR EACH RESOURCE. Education Needs: NONE IMM/CHARLES given and signed (if applicable): Goal for discharge: RETURN HOME CM/SW left business card at the bedside with contact information. Name and number was also written on the patients whiteboard. Patient verbalized understanding of discussion. CM will follow-up with ongoing discharge and transition of care needs.
[2018-05-23 12:29] VITALS: BP 129/87
[2018-05-23] MEDS ORDERED: ATENOLOL50 MG PO (14:04)
--- NOTE | 2018-05-23 14:35 | NUR ---
patient alert and oriented. Discharge instructions given at this time, patient verbalized understanding. IV discontinued, catheter in tact and pressure dressing applied. Patient refused wheelchair assistance. Patient escorted from floor to personal auto for patient to go home.
--- NOTE | 2018-05-24 04:28 | Discharge Summary ---
HOSPITAL COURSE: Mr. Feng is a 57-year-old male with a history of atrial fibrillation, sleep apnea, hypertension, CPAP dependent, was taking only atenolol and has presented to the emergency room complaining of palpitations, shortness of breath, and chest pain. He was found to have recurrent atrial fibrillation with rapid ventricular rate. At the present time, he is feeling better and the rate is under control. He has been started on Xarelto, Multaq, and atenolol. PHYSICAL EXAMINATION: GENERAL: He is awake and alert. VITAL SIGNS: Temperature is 96.9 and blood pressure is 121/80. The patient wants to go home. HEART: Regular rate. LUNGS: Clear to auscultation. ABDOMEN: Soft. LABORATORY WORK: Potassium is 3.5, creatinine 0.92, and glucose is 122. White count 5.02, hemoglobin 15.2, and hematocrit 41.1. Cardiac enzymes have been negative. Chest x-ray shows no acute findings. ASSESSMENT: On this patient, 1. Recurrent paroxysmal atrial fibrillation with rapid ventricular rate, under control now. 2. Hypertension. 3. Sleep apnea. 4. CPAP dependence. 5. Anxiety. PLAN: At the present time, the patient was stopped from Lovenox. He was started on Xarelto 20 mg daily. He is going to be on Multaq 400 mg twice a day and atenolol 50 mg daily. Continue aspirin 325 mg daily, and he is going to have to follow up with neurosurgical nurse and with his PCP as an outpatient, and the plan is to discharge him home if it is okay with Dr. Yi. Echocardiogram showed an ejection fraction of 50% to 55%. All this was discussed with the patient. All questions were answered to satisfaction. Please see home medication reconciliation list. MD MONIE Henriquez/ANNE /[id number]
== END 2018-05-23 14:35 | disposition home or self-care (01) ==
LOC: ER 23:06 → ERHOLD 05-22 04:59 → IMCU 05-22 16:50
PROVIDERS: ADMIT Internal Medicine; ATTEND Internal Medicine
DX: I48.0 Paroxysmal atrial fibrillation (principal); G47.33 Obstructive sleep apnea (adult) (pediatric); Z79.01 Long term (current) use of anticoagulants; R07.89 Other chest pain; I10 Essential (primary) hypertension; E66.9 Obesity, unspecified; J45.20 Mild intermittent asthma, uncomplicated; K27.9 Peptic ulcer, site unspecified, unspecified as acute or chronic, without hemorrhage or perforation; Z88.0 Allergy status to penicillin; Z80.1 Family history of malignant neoplasm of trachea, bronchus and lung; F41.9 Anxiety disorder, unspecified
CPT/HCPCS: 36415; 71045; 80053; 81001; 82550 ×2; 82553 ×2; 83880; 84443; 84484 ×2; 85025; 85610; 85730; 93005; 93306; 99284; G0378 ×2; J1650; J7030; J7121

== ENCOUNTER 2018-09-28 09:13 | Inpatient (IN) | payer SELFPAY ==
[~2018-09-28] VITALS: Ht 167.6 cm; Wt 88.0 kg
[~2018-09-28 09:13] MED LIST changes: +ATENOLOL50 MG PO
--- OUTSIDE RECORDS SUMMARY | 2018-09-28 09:17 | XMS REPORT | Clinical Summary ---
Author Author [facility] Organization [facility] Address Unknown Phone Unavailable Care Team Providers Care Pulverizer Name Role Phone Junior Kilgore MD PCP Allergies Comments Active Allergy [...] left elbow needed for Muscle Spasms. Active atorvastatin (LIPITOR) 20 Take 1 tablet 90 tablet 1 mg tabletIndications: by mouth at 9 Hyperlipidemia, bedtime unspecified nightly. hyperlipidemia type Active cetirizine (ZYRTEC) 10 mg Take 1 tablet 90 tablet 1 tabletIndications: Upper by mouth 9 respiratory tract daily. infection, unspecified type Active loratadine (CLARITIN) 10 Take 1 tablet 90 tablet 0 mg tabletIndications: by mouth 9 Sinus congestion daily as needed for Allergies. Active atenolol (TENORMIN) 25 mg Take 2 180 tablet 1 tabletIndications: tablets by 9 History of atrial mouth daily. fibrillation 08/22/2019 Active aspirin buffered Take 1 tablet 30 tablet 11 (ALBERTSONS BUFFERED by mouth 9 ASPIRIN) 325 mg daily for 360 tabletIndications: days. History of atrial fibrillation 04/05/2018 Discontinued cetirizine (ZYRTEC) 10 mg Take 1 tablet 90 tablet 1 tablet by mouth 7 daily. 10/16/2017 Discontinued amiodarone (CORDARONE) Take 1 tablet [...] 8 Sinusitis, unspecified daily. chronicity, unspecified location 10/16/2017 Discontinued rivaroxaban (XARELTO) 20 Take 1 [...] 8 Hyperlipidemia, bedtime unspecified nightly. hyperlipidemia type 08/27/2018 Discontinued naproxen (NAPROSYN) 375 Take 1 tablet 40 tablet 1 mg tabletIndications: by mouth 2 9 Lateral epicondylitis of times daily left elbow (with meals). 07/17/2018 Discontinued atenolol (TENORMIN) 25 mg Take 1 tablet 180 tablet 1 tabletIndications: by mouth 2 9 History of atrial times daily. fibrillation 04/17/2018 Discontinued azithromycin (ZITHROMAX) Take 1 tablet 5 tablet 0 500 mg tabletIndications: by mouth 9 Upper respiratory tract daily. infection, unspecified type 04/23/2018 oseltamivir (TAMIFLU) 75 Take 1 10 capsule 0 mg capsuleIndications: capsule by 9 Exposure to influenza, mouth 2 times Flu-like symptoms daily for 5 days. 07/10/2018 benzonatate (TESSALON Take 1 20 capsule 0 PERLES) 100 mg capsule by 9 capsuleIndications: Sinus mouth 3 times congestion daily as needed for up to 7 days for Cough. 07/04/2018 Discontinued fluticasone propionate Use 1 [place] 16 g 1 (FLONASE) 50 in each 9 mcg/actuation nasal nostril daily sprayIndications: Sinus for 7 days. congestion 08/27/2018 Discontinued rivaroxaban (XARELTO) 20 Take 1 tablet 30 tablet 11 mg tabletIndications: by mouth 9 History of atrial daily (with fibrillation dinner) for 360 days. 07/11/2018 mometasone (NASONEX) 50 Use 1 [place] 17 g 1 mcg/actuation nasal daily for 7 9 sprayIndications: Sinus days. congestion Status Hospital, Clinic, or Ordered Dose Route [...] Encounters Care Team Description Date Type Specialty Jerilyn Lorenz MD History of atrial fibrillation- paroxysmal - on xeralto , amiodarone and atenolol as of 05/2017 -ref to cardiology done ; holter and TTE completed (Primary Dx) 08/27/2018 Office Visit Cardiology 08/27/2018 Travel [place] JOAQUIN (generalized anxiety disorder) (Primary Dx) 08/13/2018 Office Visit Psychology Junior Kilgore MD 07/30/2018 Hospital Radiology Encounter 07/30/2018 Travel Raya Galicia RN 07/20/2018 Nurse Triage Junior Kilgore MD Results (Low thyroid level, needs additional labs. ) 07/18/2018 Telephone Family Practice Junior Kilgore MD Abnormal finding on imaging 07/17/2018 Ancillary Radiology Procedure Junior Kilgore MD Dizzy spells-dizzyness /sob- off and on 2 wks - on xeralto - stress test pending /JOLIE - hx of afib (Primary Dx); Dietary counseling for Above / Below Normal BMI; Exercise counseling for Above Normal BMI Only!; Abnormal finding on imaging; History of atrial fibrillation 07/17/2018 Office Visit Family Practice Jerilyn Lorenz MD History of atrial fibrillation- paroxysmal - on xeralto , amiodarone and atenolol as of 05/2017 -ref to cardiology done ; holter and TTE completed 07/09/2018 Orders Only Cardiology 07/05/2018 Ancillary Radiology Procedure Junior Kilgore MD Sinus congestion 07/04/2018 Refill Family Practice Junior Kilgore MD History of atrial fibrillation- paroxysmal - on xeralto , amiodarone and atenolol as of 05/2017 -ref to cardiology done ; holter and TTE completed 07/02/2018 Hospital Lab Encounter Jerilyn Lorenz MD History of atrial fibrillation- paroxysmal - on xeralto , amiodarone and atenolol as of 05/2017 -ref to cardiology done ; holter and TTE completed (Primary Dx) 07/02/2018 Office Visit Cardiology Jerilyn Lorenz MD History of atrial fibrillation- paroxysmal - on xeralto , amiodarone and atenolol as of 05/2017 -ref to cardiology done ; holter and TTE completed 07/02/2018 Orders Only Cardiology Patience Brown MD 06/27/2018 Ancillary Radiology Procedure Patience Brown MD Results 06/27/2018 Telephone [facility] 06/27/2018 Travel Patience Brown MD Sinus congestion (Primary Dx); Headache, unspecified headache type 06/26/2018 Office Visit [facility] 06/26/2018 Travel Junior Kilgore MD Exposure to influenza (Primary Dx); Flu-like symptoms 04/17/2018 Office Visit [facility] Junior Kilgore MD Hyperlipidemia, unspecified hyperlipidemia type 04/12/2018 Lab Appointment Lab Junior Kilgore MD Essential hypertension (Primary Dx); History of atrial fibrillation; Dietary counseling for Above / Below Normal BMI; Exercise counseling for Above Normal BMI Only!; Hyperlipidemia, unspecified hyperlipidemia type; Upper respiratory tract infection, unspecified type; Lateral epicondylitis of left elbow 04/05/2018 Office Visit [facility] 04/05/2018 Travel Sallie Agustin RN 02/07/2018 Nurse Triage Nila Montejo LVN Results 01/26/2018 Telephone [facility] Velia Mcgee DPM Fungal toenail infection (Primary Dx) 01/23/2018 Orders Only Podiatry Junior Kilgore MD Results 01/22/2018 Telephone Family Practice Velia Mcgee DPM Fungal toenail infection (Primary Dx); Plantar fasciitis 01/16/2018 Office Visit Podiatry Jerilyn Lorenz MD 01/11/2018 Hospital Encounter Junior Kilgore MD Elbow pain, chronic, left (Primary Dx); Acute midline low back pain without sciatica; History of atrial fibrillation 01/10/2018 Office Visit Family Practice Jerilyn Lorenz MD Paroxysmal atrial fibrillation (Primary Dx); Drug-induced erectile dysfunction; Obstructive sleep apnea 01/08/2018 Office Visit Cardiology Epic, Generic Transmittal User Paroxysmal atrial fibrillation 01/08/2018 Orders Only Cardiology Frederic Roche MD Lateral epicondylitis of left elbow (Primary Dx) 11/24/2017 Office Visit Family Practice Lady Hancock RN Other (returning patient call) 11/24/2017 Telephone Junior Kilgore MD Bronchitis, not specified as acute or chronic (Primary Dx); Plantar fasciitis, left 11/06/2017 Office Visit Family Practice Junior Kilgore MD Pain of left heel 10/27/2017 Ancillary Radiology Procedure Junior Kilgore MD Lateral epicondylitis of left elbow (Primary Dx); Pain of left heel 10/26/2017 Office Visit Family Practice Junior Kilgore MD Pain of left heel; Lateral epicondylitis of left elbow 10/26/2017 Orders Only Family Practice Jerilyn Lorenz MD Persistent atrial fibrillation (Primary Dx); Drug-induced erectile dysfunction 10/16/2017 Office Visit Cardiology after 09/27/2017 Immunizations Name Administration Dates Next Due Influenza Vaccine, 04/17/2018 (Deferred: Other [...] Never Used Tobacco Cessation: Counseling Given: Yes Drinks/Week oz/Week Comments Alcohol Use 0 Standard drinks or equivalent 0.0 socially Yes Food Insecurity Answer Date Recorded Within the past 12 months, you worried that your Never true 10/26/2017 food would run out before you got money to buy more. Within the past 12 months, the food you bought Never true 10/26/2017 just didn't last and you didn't have money to get more. Sex Assigned at Date Recorded Not on file Industry Job Start Date Occupation Not on file Not on file Not on file Travel End Travel History Travel Start No recent travel history available. Last Filed Vital Signs Reading Time Taken Comments Vital Sign 125/85 08/27/2018 3:15 PM CDT Blood Pressure 76 08/27/2018 3:15 PM CDT Pulse 36.8 C (98.3 F) 08/27/2018 3:15 PM CDT Temperature 18 08/27/2018 3:15 PM CDT Respiratory Rate 100% 07/30/2018 8:50 AM CDT Oxygen Saturation - - Inhaled Oxygen Concentration 92.9 kg (204 lb 14.4 oz) 08/27/2018 3:15 PM CDT Weight 167.6 cm (5' 6") 08/27/2018 3:15 PM CDT Height 33.07 08/27/2018 3:15 PM CDT Body Mass Index Plan of Treatment Care Team Description Date Type Specialty [facility] F Anaya [facility] [address] [facility] [address] [place] [address] 10/04/2018 Office Visit Psychiatry Junior Kilgore MD [address] [place] [id number] ANNUAL PHYSICAL EXAM ONLY PER ST PS[facility] 10/16/2018 Office Visit Family Practice Health Maintenance Due Date Last Done Comments Colonoscopy 10yr 01/27/2025 01/27/2015 Procedures Comments Procedure Name Priority Date/Time Associated Diagnosis 12 LEAD EKG Routine 08/27/2018 History of atrial 3:46 PM CDT fibrillation- paroxysmal - on xeralto , amiodarone and atenolol as of 05/2017 -ref to cardiology done ; holter and TTE completed MYOCARDIAL PERFUSION Routine 07/30/2018 History of atrial SPECT REST/STRES MULTIPLE 9:48 AM CDT fibrillation- paroxysmal - on xeralto , amiodarone and atenolol as of 05/2017 -ref to cardiology done ; holter and TTE completed TREADMILL STRESS-TRACING 07/30/2018 ONLY 8:41 AM CDT XRAY RIBS W CHEST UNILAT Today 07/17/2018 Abnormal finding on 3 VIEWS MIN 2:22 PM CDT imaging 12 LEAD EKG Routine 07/17/2018 Dizzy spells-dizzyness 1:51 PM CDT /sob- off and on 2 wks - on xeralto - stress test pending /JOLIE - hx of afib THYROID STIMULATING Routine 07/17/2018 Dizzy spells-dizzyness HORMONE (TSH) 1:42 PM CDT /sob- off and on 2 wks - on xeralto - stress test pending /JOLIE - hx of afib CT CHEST W/O CONTRAST Routine 07/05/2018 Abnormal x-ray 11:58 AM CDT CBC/DIFF Routine 07/02/2018 History of atrial 4:43 PM CDT fibrillation- paroxysmal - on xeralto , amiodarone and atenolol as of 05/2017 -ref to cardiology done ; holter and TTE completed PT/INR/PTT Routine 07/02/2018 History of atrial 4:43 PM CDT fibrillation- paroxysmal - on xeralto , amiodarone and atenolol as of 05/2017 -ref to cardiology done ; holter and TTE completed COMPREHENSIVE METABOLIC Routine 07/02/2018 History of atrial PANEL 4:43 PM CDT fibrillation- paroxysmal - on xeralto , amiodarone and atenolol as of 05/2017 -ref to cardiology done ; holter and TTE completed XRAY CHEST 2 VIEWS Routine 06/27/2018 Sinus congestion 9:32 AM CDT Headache, unspecified headache type THROAT CULTURE Routine 06/26/2018 4:04 PM CDT NONINVASV OXYGEN Routine 06/26/2018 Sinus congestion SATUR;SINGLE 3:55 PM CDT Headache, unspecified headache type GROUP A STREP SCREEN STAT 06/26/2018 Sinus congestion 3:55 PM CDT Headache, unspecified headache type LIVER PROFILE Routine 04/12/2018 Hyperlipidemia, 12:48 PM [employer]UFA[employer]URING [employer] ENGINEER unspecified hyperlipidemia type ALANINE Routine 01/22/2018 Fungal toenail infection AMINOTRASFERASE/ASPARTATE 10:21 AM MANUFACTURING [employer]PLICATION[employer] ENGINEER AMINOTRANSFERASE (ALT/AST) LIPID PROFILE Routine 01/22/2018 History of atrial 10:21 AM MANUFACTURING [employer] ENGINEER fibrillation COMPREHENSIVE METABOLIC Routine 01/22/2018 History of atrial PANEL 10:21 AM MANUFACTURING [employer]PLICATION[employer] ENGINEER fibrillation 24 HOUR HOLTER MONITOR Routine 01/11/2018 Paroxysmal atrial 11:52 AM MANUFACTURING [employer] ENGINEER fibrillation 12 LEAD EKG Routine 01/08/2018 Paroxysmal atrial 2:36 PM MANUFACTURING [employer] ENGINEER fibrillation XRAY OS CALCIS 2 VIEWS Routine 10/27/2017 Pain of left heel MIN 10:14 AM CDT 12 LEAD EKG Routine 10/16/2017 Persistent atrial 4:01 PM CDT fibrillation after 09/27/2017 Results * 12 LEAD EKG (08/27/2018 3:46 PM CDT) 12 LEAD EKG FOR [facility] Test Date:2018-08-27 Pat Name: CHANNING Gilliland partment: Room: Gender: M Injection Molder: [id number] :[id number] Requested By: JERILYN Mei Order Number: [id number] Reading MD: Ritesh Ceron Measurements Intervals [place] Rate: 71 P:58 MN: 153 QRS: 17 QRSD: 91 T:31 QT: 366 QTc:399 Interpretive Statements SINUS RHYTHM POSSIBLE RIGHT VENTRICULAR CONDUCTION DELAY Electronically Signed On 08-27-2018 16:02:13 CDT by Ritesh Ceron Specimen Performing Organization Address City/State/Zipcode Phone Number SMS * MYOCARDIAL PERFUSION SPECT REST/STRES MULTIPLE (07/30/2018 9:48 AM CDT) MYOCARDIAL Myocardial Perfusion SMS PERFUSION SPECT Report REST/STRES CHANNING FENG Age:57Gender: M :1960 Exam Date: 07/30/2018 07:32 Exam Location:[facility] Nuc Ordering Phys: JERILYN LORENZ Referring Phys: Reading Phys:Wale Santos MD Fellow Phys: Fellow Phys: Resident: Technologist: Radha Chan Reason For Exam: Indications: ICD-9 Codes: Exam Type: MYOCARDIAL PERFUSION SPECT REST/STRES MULTIPLE Procedure CPT: 99885 Additional CPT: BP:/ HR: Risk Factors: Previous Cardiac Procedures: Cardiac History: Pertinent Meds: Meds past 24 hrs: Pretest Chest Pain: CARDIOLOGY STRESS TEST Pharmacologi Cardiology exercise stress test results pending under separate report. Please look in EPIC under the Procedures Tab in Chart Review. IMAGE PROTOCOLStr/Rst 1 Day Tech Radiopharmaceutical Dose (mCi)Duration (min)Img Date Img Time Rest: Tc-99m 10 REST DATE Tetrofosmin Stress: Tc-99m 30 STRESS DATE Tetrofosmin Administration Site:Right antecubital fossa SPECT RESULTS Technical Quality:Adequate Raw Data Analysis:Diaphragm atic attenuation Stress Perfusion Rest Perfusion Summed Stress Score:0 Summed Rest Score: 0 Summed Difference Score: 0 0 - Normal 2 - Abnormal Uptake 4 - Absent 1 - Mildly Reduced Uptake 3 - Severely Reduced Tracer Uptake X - Not Interpretable RV: No evidence of ischemia. Gated SPECT imaging reveals no perfusion abnormality at stress or rest. FUNCTION (calculated via Gated SPECT) Resting LV EF: % EDV:74 ml(70-100 ml) Post Stress LV EF: 64% TID: ESV:27 ml (30-50 ml) Technical Quality: LV Size & Function: Normal left ventricular size and ejection fraction. LV Regional Function: Normal left ventricular wall motion and thickening. Other Findings: Variable Not Implemented IMPRESSIONS No evidence of ischemia or infarct. Normal left ventricular function with ejection fraction 64% [place] Control: Do not remove! Wale Santos MD (Electronically Signed) Final Date:30 July 2018 13:49 Specimen Performing Organization Address [facility] Phone Number SMS * TREADMILL STRESS-TRACING ONLY (07/30/2018 8:41 AM CDT) Stress Test [facility] Test Date:2018-07-30 Pat Name: CHANNING Gilliland partment: Room: Gender: Injection Molder: LILIANA SENIOR :1961-0 10-20 Requested By: JULITO Ruiz Order Number: [id number] Reading MD: Camila Velasquez Interpretive Statements The patient was tested using LEXISCAN STRESS TEST for a duration of 01:00. A maximum heart rate of 96 was obtained at 01:10 with a maximum systolic blood pressure of 148/98 at 00:10 and a maximum diastolic blood pressure of 148/98 obtained at 00:10. SYMPTOMS: No cardiac symptoms were reported during the regadenoson infusion or recovery. ELECTROCARDIOGRAM: The resting ECG showed sinus bradycardia, possible right ventricular conduction delay. There were no ischemic ECG changes during regadenoson infusion or in the recovery phase. ARRHYTHMIAS: No significant arrhythmias were detected during regadenoson infusion or in the recovery period. CONCLUSION: Normal clinical and hemodynamic response to regadenoson stress test. Normal electrocardiographic portion of the regadenoson stress test with no evidence of inducible ischemia. Nuclear report to follow Please refer to the nuclear(imaging) portion of the stress test results under separate section of the Procedures section in EPIC. Electronically Signed On 07-30-2018 22:20:47 CDT by Camila Velasquez Specimen Performing Organization Address [facility] Phone Number SMS * XRAY RIBS W CHEST UNILAT 3 VIEWS MIN (07/17/2018 2:22 PM CDT) Specimen Impressions Performed At IMPRESSION: SMS No displaced rib fracture. Dictated By: Wiliam Dos Santos MD, 07/17/2018 3:04 PM I have reviewed the study and agree with the findings in this report. Signed By: Rigoberto Hill MD, 07/17/2018 3:08 PM Narrative Performed At EXAM: Left Rib Series:3 view(s), 5 images SMS INDICATION: abn ct imaging - ? rib fractures COMPARISON: None available. DISCUSSION: No acute displaced fracture. No pneumothorax. The soft tissues are unremarkable. Procedure Note Interface, Rad/Mammog In - 07/17/2018 3:13 PM CDT EXAM: Left Rib Series: 3 view(s), 5 images INDICATION: abn ct imaging - ? rib fractures COMPARISON: None available. DISCUSSION: No acute displaced fracture. No pneumothorax. The soft tissues are unremarkable. IMPRESSION IMPRESSION: No displaced rib fracture. Dictated By: Wiliam Dos Santos MD, 07/17/2018 3:04 PM I have reviewed the study and agree with the findings in this report. Signed By: Rigoberto Hill MD, 07/17/2018 3:08 PM Performing Organization Address [facility] Phone Number [facility] * 12 LEAD EKG (07/17/2018 1:51 PM CDT) 12 LEAD EKG FOR [facility] Test Date:2018-07-17 Pat Name: CHANNING Gilliland partment: [id number] Room: Gender: Injection Molder: [id number] :[id number] Requested By: JUNIOR KILGORE Order Number: [id number] Reading MD: Allison Saba M.D. Measurements Intervals [place] Rate: 61 P:62 MN: 148 QRS: 30 QRSD: 90 T:40 QT: 375 QTc:379 Interpretive Statements SINUS RHYTHM POSSIBLE RIGHT VENTRICULAR CONDUCTION DELAY Electronically Signed On 07-17-2018 16:17:05 CDT by Allison Saba M.D. Specimen Performing Organization Address [facility] Phone Number [facility] * TSH (07/17/2018 1:42 PM CDT) TSH 0.47 (L) 0.57 - 3.74 uIU/mL BT MAIN-STATION 1 Specimen Blood Performing Organization Address [facility] Phone Number MISYS BT MAIN-STATION 1 * CT CHEST W/O CONTRAST (07/05/2018 11:58 AM CDT) Specimen Impressions Performed At IMPRESSION: [facility] Questionable nondisplaced fractures of the anterior left fifth, sixth, and seventh ribs. Please correlate clinically for point tenderness. Otherwise, no acute thoracic abnormality. No findings to correlate to the x-ray finding on 06/27/2018. Dictated By: Thomas Das MD, 07/05/2018 2:25 PM I have reviewed the study and agree with the findings in this report. Signed By: Kishan Trevino MD, 07/06/2018 7:42 AM Narrative Performed At EXAM: CT Chest WITHOUT contrast SMS INDICATION: Shortness of breath COMPARISON: Radiograph June 27, 2018, CT abdomen pelvis December 29, 2015 TECHNIQUE: Chest was scanned utilizing a multidetector helical scanner from the lung apex through the level of the adrenal glands without administration of IV contrast. Absence of intravenous contrast decreases sensitivity for detection of lymphadenopathy and vascular pathology. Coronal and sagittal reformations were obtained. Routine protocol was performed. IV CONTRAST: None COMPLICATIONS: None RADIATION DOSE: Total DLP: 439.3 mGy*cm Estimated effective dose: (DLP x 0.014 x size factor) mSv CTDIvol has been reviewed. It is below the limits set by the Radiation Protocol Committee (RPC). FINDINGS: LINES/ TUBES: None. LUNGS AND AIRWAYS:There is a 7 mm typical perifissural nodule at the right minor fissure (series 3 image 60). A 4 mm subpleural nodule in the right lower lobe on series 3 image 74 is unchanged since 2016. These do not require follow-up per Fleischner criteria. No nodule to correspond to x-ray findings. Airways are normal. PLEURA: The pleural spaces are clear. HEART AND MEDIASTINUM: The visualized thyroid gland is normal.No mediastinal, hilar or axillary lymphadenopathy.The heart is normal in size.. There is no pericardial effusion. UPPER ABDOMEN: Unremarkable. BONES: Questionable nondisplaced fracture of the anterior left fifth, sixth, and seventh ribs. SOFT TISSUES: In the subcutaneous tissues of the left anterolateral chest wall there is a 2 x 0.8 cm lobular soft tissue lesion, series 3 image 81. This has not changed since December 29, 2015. Procedure Note Interface, Rad/Mammog In - 07/06/2018 7:47 AM CDT EXAM: CT Chest WITHOUT contrast INDICATION: Shortness of breath COMPARISON: Radiograph June 27, 2018, CT abdomen pelvis December 29, 2015 TECHNIQUE: Chest was scanned utilizing a multidetector helical scanner from the lung apex through the level of the adrenal glands without administration of IV contrast. Absence of intravenous contrast decreases sensitivity for detection of lymphadenopathy and vascular pathology. Coronal and sagittal reformations were obtained. Routine protocol was performed. IV CONTRAST: None COMPLICATIONS: None RADIATION DOSE: Total DLP: 439.3 mGy*cm Estimated effective dose: (DLP x 0.014 x size factor) mSv CTDIvol has been reviewed. It is below the limits set by the Radiation Protocol Committee (RPC). FINDINGS: LINES/ TUBES: None. LUNGS AND AIRWAYS: There is a 7 mm typical perifissural nodule at the right minor fissure (series 3 image 60). A 4 mm subpleural nodule in the right lower lobe on series 3 image 74 is unchanged since 2016. These do not require follow-up per Fleischner criteria. No nodule to correspond to x-ray findings. Airways are normal. PLEURA: The pleural spaces are clear. HEART AND MEDIASTINUM: The visualized thyroid gland is normal. No mediastinal, hilar or axillary lymphadenopathy. The heart is normal in size.. There is no pericardial effusion. UPPER ABDOMEN: Unremarkable. BONES: Questionable nondisplaced fracture of the anterior left fifth, sixth, and seventh ribs. SOFT TISSUES: In the subcutaneous tissues of the left anterolateral chest wall there is a 2 x 0.8 cm lobular soft tissue lesion, series 3 image 81. This has not changed since December 29, 2015. IMPRESSION IMPRESSION: Questionable nondisplaced fractures of the anterior left fifth, sixth, and seventh ribs. Please correlate clinically for point tenderness. Otherwise, no acute thoracic abnormality. No findings to correlate to the x-ray finding on 06/27/2018. Dictated By: Thomas Das MD, 07/05/2018 2:25 PM I have reviewed the study and agree with the findings in this report. Signed By: Kishan Trevino MD, 07/06/2018 7:42 AM Performing Organization Address City/State/Zipcode Phone Number SMS * COMPREHENSIVE METABOLIC PANEL(DBIL NOT INCLUDED) (07/02/2018 4:43 PM CDT) Only the most recent of 2 results within the time period is included. Albumin 4.3 4.2 - 5.5 g/dL [facility] 1 Calcium 8.8 8.6 - 10.3 mg/dL [facility] 1 CO2 29 21 - 31 mmol/L [facility] 1 Chloride 108 (H) 98 - 107 mmol/L [facility] 1 Creatinine 1.00 0.7 - 1.3 mg/dL [facility] 1 Glucose 103 70 - 110 mg/dL [facility] 1 Alkaline 77 34 - 104 U/L [facility] Phosphatase, S MAIN-STATION 1 Potassium 4.8 3.5 - 5.1 mmol/L [facility] 1 Sodium 143 136 - 145 mmol/L [facility] 1 ALT 22 7 - 52 U/L [facility] 1 AST (SGOT) 25 13 - 39 U/L [facility] 1 BUN 19 7 - 25 mg/dL [facility] 1 Bilirubin, 0.8 0.2 - 1.2 mg/dL [facility] Total [facility]IN[facility] 1 Protein, Total, 6.9 6.0 - 8.3 g/dL [facility] Serum [facility]IN[facility]ST[facility] 1 GFR, Estimated >60 mL/min/1.73 m2 [facility] 1 eGFR If Africn >60 mL/min/1.73 m2 [facility] Am [facility]IN[facility] 1 Anion Gap 6 [facility] 1 Specimen Blood Performing Organization Address City/[facility] Phone Number [facility] [facility] 1 * PT/INR/PTT (07/02/2018 4:43 PM CDT) PT 15.8 (H) 11.8 - 15.0 Seconds [facility] MAIN-[facility] 4 INR 1.3 [facility] SUGGESTED THERAPEUTIC RANGES: MAIN-STATION 4 INR 2.0-3.0 for MODERATE INTENSITY ANTICOAGULATION INR 2.5-3.5 for HIGH INTENSITY ANTICOAGULATION PTT 32.6 23.6 - 36.4 Seconds [facility] 4 Specimen Blood Performing Organization Address [facility] Phone Number [facility] 4 * CBC/DIFF (07/02/2018 4:43 PM CDT) WBC 5.6 4.5 - 12.0 K/uL [facility]IN-[facility] 2 RBC 4.70 4.60 - 6.20 M/uL [facility] 2 Hemoglobin 15.0 14.0 - 18.0 g/dL [facility]IN-[facility] 2 Hematocrit 43.3 40.0 - 54.0 % [facility]IN-[facility] 2 MCV 92 82 - 92 fL [facility] 2 MCH 31.9 (H) 27.0 - 31.0 pg [facility] MAIN-ST[facility] 2 MCHC 34.6 32.0 - 36.0 g/dL [facility]IN-STATION 2 RDW 39.8 35.1 - 43.9 fL [facility]ST[facility] 2 Platelets 165 150 - 400 K/uL [facility]ST[facility] 2 Mean Platelet 9.3 (L) 9.4 - 12.4 fL [facility] Volume MAIN-STATION 2 Percent NRBC 0.0 [facility] 2 Absolute NRBC 0.00 [facility] 2 Neutrophils 41.3 34.0 - 67.9 % [facility] 2 Lymphs 42.8 21.8 - 50.0 % [facility] 2 Monocytes 11.8 5.3 - 12.0 % [facility] 2 Eos 3.4 0.8 - 5.0 % [facility] 2 Basos 0.5 0.2 - 1.2 % [facility] 2 Immature 0.2 0.0 - 0.5 [facility] Granulocytes MAIN-STATION 2 Neutrophils 2.32 1.78 - 5.36 K/uL [facility] (Absolute) MAIN-STATION 2 Lymphs 2.40 1.32 - 3.57 K/uL [facility] (Absolute) MAIN-STATION 2 Monocytes(Absol 0.66 0.30 - 0.82 K/uL [facility] william) MAIN-STATION 2 Eos (Absolute) 0.19 0.04 - 0.54 K/uL [facility]IN-STATION 2 Baso (Absolute) 0.03 0.01 - 0.08 K/uL [facility]IN-STATION 2 Immature Grans 0.01 0.00 - 0.03 K/uL [facility] (Abs) MAIN-STATION 2 Specimen Blood Performing Organization Address City/State/Zipcode Phone Number M[facility]YS [facility] MAIN-STATION 2 * XRAY CHEST 2 VIEWS (06/27/2018 9:32 AM CDT) Specimen Impressions Performed At IMPRESSION: SMS Interval development of a 7 mm dense nodular opacity which is either in the lung or in the rib. Consider CT chest without contrast versus chest x-ray with oblique views for further evaluation. Dictated By: Edith Larsen MD, 06/27/2018 9:43 AM I have reviewed the study and agree with the findings in this report. Signed By: Shalini Randle MD, 06/27/2018 12:40 PM Narrative Performed At EXAM: XRAY CHEST 2 VIEWS SMS DATE: 06/27/2018 9:32 AM INDICATION: c/o nasal congestion, recurrent since few mths and has c/o SOB - chronic COMPARISON: Chest radiograph 10/05/2016. FINDINGS: Devices, Lines, and Tubes: None. Heart and Mediastinum: Unremarkable. Lungs and Pleura: No pleural effusion, pneumothorax, or focal consolidation. Decreased inspiration on lateral view gives artifactual vascular crowding. Indeterminate 7 mm dense nodular opacity in the left midlung zone overlying the posterior left seventh rib. This was not seen on prior exam. Bones and Soft Tissues: No acute findings. Procedure Note Interface, Rad/Mammog In - 06/27/2018 12:45 PM CDT EXAM: XRAY CHEST 2 VIEWS DATE: 06/27/2018 9:32 AM INDICATION: c/o nasal congestion, recurrent since few mths and has c/o SOB - chronic COMPARISON: Chest radiograph 10/05/2016. FINDINGS: Devices, Lines, and Tubes: None. Heart and Mediastinum: Unremarkable. Lungs and Pleura: No pleural effusion, pneumothorax, or focal consolidation. Decreased inspiration on lateral view gives artifactual vascular crowding. Indeterminate 7 mm dense nodular opacity in the left midlung zone overlying the posterior left seventh rib. This was not seen on prior exam. Bones and Soft Tissues: No acute findings. IMPRESSION IMPRESSION: Interval development of a 7 mm dense nodular opacity which is either in the lung or in the rib. Consider CT chest without contrast versus chest x-ray with oblique views for further evaluation. Dictated By: Edith Larsen MD, 06/27/2018 9:43 AM I have reviewed the study and agree with the findings in this report. Signed By: Shalini Randle MD, 06/27/2018 12:40 PM Performing Organization Address City/[facility] Phone Number SMS * THROAT CULTURE (06/26/2018 4:04 PM CDT) Spec Throat swab [facility] Description Order Comments None [facility] Culture Normal bharat, no Beta BT MICROBIOLOGY Streptococcus isolated Report Status Final 06/29/2018 BT MICROBIOLOGY Specimen Throat Performing Organization Address [facility] Phone Number MISYS [facility] BT MICROBIOLOGY * GROUP A STREP SCREEN (06/26/2018 3:55 PM CDT) Group A Strep Negative NEG [facility] Specimen Other (Specify in Comments) - Throat Performing Organization Address [facility] Phone Number MISYS [facility] * LIVER PROFILE (04/12/2018 12:48 PM MANUFACTURING APPLICATIONS ENGINEER) Protein, Total, 6.3 6.0 - 8.3 g/dL BT MAIN-STATION Serum 1 Albumin 3.9 (L) 4.2 - 5.5 g/dL [facility] MAIN-STATION 1 Bilirubin, 0.6 0.2 - 1.2 mg/dL [facility] MAIN-STATION Total 1 Alkaline 71 34 - 104 U/L [facility] MAIN-STATION Phosphatase, S 1 AST (SGOT) 22 13 - 39 U/L BT MAIN-STATION 1 ALT 23 7 - 52 U/L BT MAIN-STATION 1 D Bilirubin 0.1 0.0 - 0.2 mg/dL [facility] MAIN-STATION 1 Specimen Blood Performing Organization Address [facility] Phone Number MISYS BT MAIN-STATION 1 * LIPID PROFILE (01/22/2018 10:21 AM MANUFACTURING APPLICATIONS ENGINEER) Cholesterol 207 mg/dL BT MAIN-STATION Comment: 1 REFERENCE RANGE: Desirable: <200 mg/dL Borderline: 200-240 mg/dL High Risk: >240 mg/dL Triglyceride 99 <150 mg/dL BT MAIN-STATION Comment: 1 REFERENCE RANGE: Normal: <150 mg/dL Borderline High: 150-199 mg/dL High: 200-499 mg/dL Very High: >mw=393 mg/dL HDL 55 mg/dL BT MAIN-STATION Comment: 1 Increased CHD risk: <40 mg/dL Decreased CHD risk: >60 mg/dL LDL 132 mg/dL BT MAIN-STATION Comment: 1 REFERENCE RANGE: Optimal: <100 mg/dL Near Optimal: 100-129 mg/dL Borderline High: 130-159 mg/dL High: 160-189 mg/dL Very High: >kl=335 mg/dL Specimen Blood Performing Organization Address [facility] Phone Number MISYS BT MAIN-STATION 1 * ALT/AST (01/22/2018 10:21 AM MANUFACTURING APPLICATIONS ENGINEER) ALT 18 7 - 52 U/L BT MAIN-STATION 1 AST (SGOT) 19 13 - 39 U/L BT MAIN-STATION 1 Specimen Blood Performing Organization Address [facility] Phone Number JANICEYS BT MAIN-STATION 1 * 24 HOUR HOLTER MONITOR (01/11/2018 11:52 AM MANUFACTURING APPLICATIONS ENGINEER) 24 HOUR HOLTER SMS MONITOR Loi Lazo [facility] Test Date:2018-01-11 Pat Name: CHANNING Gilliland partment: [facility] Room: Gender: Injection Molder: JORDAN SENIOR :10-20 Requested By: JERILYN LORENZ Order Number: [id number] Sacha MD: Ariel Zhao Interpretive Statements 24 hour Holter monitor performed for evaluation of atrial fibrillation. A single reported event of shortness of breath was documented by patient. The monitoring started at 11:52:19 AM and was continued for 23 hr 51 min. The total number of beats [place] [address] with a total analysis duration of 23 [...] any arrhythmias. Electronically Signed On 01-17-2018 8:36:15 MANUFACTURING APPLICATIONS ENGINEER by Ariel Zhao Specimen Performing Organization Address City/State/[facility] Phone Number SMS * 12 LEAD EKG (01/08/2018 2:36 PM MANUFACTURING APPLICATIONS ENGINEER) [facility] Lo[facility] Test Date:2018-01-08 Pat Name: CHANNING Gilliland partment: Room: Gender: Injection Molder: [id number] Requested By: Order Number: R alvaro LOPEZ: NARA KAPLAN Measurements Intervals [place] Rate: 72 P:59 MN: 148 QRS: 35 QRSD: 92 T:11 QT: 371 QTc:408 Interpretive Statements SINUS RHYTHM WITH SINUS ARRHYTHMIA NONSPECIFIC T-WAVE ABNORMALITY Electronically Signed On 01-08-18 20:43:50 MANUFACTURING APPLICATIONS ENGINEER by NARA KAPLAN Specimen Performing Organization Address [facility] Phone Number SMS * XRAY OS CALCIS 2 VIEWS MIN (10/27/2017 10:14 AM CDT) Specimen Impressions Performed At IMPRESSION: [facility] No acute radiographic abnormality. Dictated By: Amanda [...] MD, 10/27/2017 10:33 AM Performing Organization Address [facility] Phone Number [facility] * 12 LEAD EKG (10/16/2017 4:01 PM CDT) 12 [facility] Test Date:2017-10-16 Pat Name: CHANNING Gilliland partment: Room: Gender: M Injection Molder: Daya CONTI [id number] :1961-0 10[birth year]20 Requested By: Order Number: Daya john MD: Darryn De La Cruz Measurements Intervals [place] Rate: 60 P:53 MN: 125 QRS: 15 QRSD: 79 T:20 QT: 403 QTc:403 Interpretive Statements SINUS RHYTHM Electronically Signed On 10-17-17 09:16:19 CDT by Darryn De La Cruz Specimen Performing Organization Address City/State/Zipcode Phone Number SMS after 09/27/2017 Insurance Type Payer Benefit Subscriber ID Effective Phone Address Plan / Dates Group [facility] PLAN FINANCIAL xxxxxxx 2018-2 [address] [place] [address] [place] [facility] xxxxxxx 2018- [phone] [address] INDIGENT FAMILY 2019 [id number] PLANNING [facility] [address]
[2018-09-28] MEDS ORDERED: DILTIAZEM HCL 125 ML IV STA (09:49)
[2018-09-28] MEDS ORDERED: ENOXAPARIN INJ 80 MG/0.8 ML SYR SC NR (10:00)
[2018-09-28] MEDS ORDERED: DILTIAZEM HCL 5 MG/ML 5 ML VIAL IV NR (10:00)
[2018-09-28 10:11] LABS: BASOPHILS % 0.3 % (0.0-1.0); EOSINOPHILS # (AUTO) 0.2 (0.0-0.4); EOSINOPHILS % 3.5 % (0.0-6.0); HEMATOCRIT 38.7 % (38.2-49.6); HEMOGLOBIN 14.7 g/dL (14.0-18.0); LYMPHOCYTES # (AUTO) 2.5 (1.0-3.2); LYMPHOCYTES % 41.4 % (18.0-39.1); MEAN CORPUSCULAR HEMOGLOBIN 33.6 pg (28-32); MEAN CORPUSCULAR VOLUME 88.4 fL (81-99); MONOCYTES # (AUTO) 0.7 (0.2-0.8); MONOCYTES % 11.9 % (4.4-11.3); NEUTROPHILS # (AUTO) 2.5 (2.1-6.9); NEUTROPHILS % 42.6 % (38.7-80.0); PLATELET COUNT 169 x10e3/uL (140-360); RED BLOOD COUNT 4.38 x10e6/uL (4.3-5.7); RED CELL DISTRIBUTION WIDTH 12.2 % (11.7-14.4)
[2018-09-28] MEDS ORDERED: ASPIRIN 81 MG CHEW TAB PO ONE ×2 (10:30→12:30)
[2018-09-28 10:35] LABS: ANION GAP 14.7 mmol/L (8-16); BLOOD UREA NITROGEN 25 mg/dL (7-26); BUN/CREATININE RATIO 25 (6-25); CALCIUM 9.1 mg/dL (8.4-10.2); CARBON DIOXIDE 20 mmol/L (22-29); CHLORIDE 109 mmol/L (98-107); EST GLOMERULAR FILTRATION RATE > 60 ML/MIN (60-); GLUCOSE 126 mg/dL (74-118); POTASSIUM 3.7 mmol/L (3.5-5.1); SODIUM 140 mmol/L (136-145)
[2018-09-28 10:43] LABS: CREATINE KINASE MB 2.4 ng/mL (0-5.0)
--- NOTE | 2018-09-28 11:53 | Diagnostic Imaging Report ---
EXAMINATION: CHEST SINGLE (PORTABLE) INDICATION: Atrial fibrillation COMPARISON: Multiple prior chest radiograph most recently of 05/21/2018 FINDINGS: LINES/TUBES:EKG leads overlie the chest. LUNGS:The lungs are well-inflated. No focal consolidation or pulmonary edema. Nodular opacity at the right lung base likely represents nipple shadow. PLEURA:No pleural effusion or pneumothorax. MEDIASTINUM:The cardiomediastinal silhouette appears normal in size and shape. BONES/SOFT TISSUES:No acute osseous injury. ABDOMEN:No free air under the diaphragm. IMPRESSION: No focal pneumonia or pulmonary edema. Signed by: Jaspal Tello MD on 09/28/2018 11:50 AM
[2018-09-28] MEDS ORDERED: SODIUM CHLORIDE FLUSH 10 ML SYR INJ PRN (12:30)
[2018-09-28] MEDS ORDERED: METOPROLOL TARTRATE 50 MG TAB PO NR (13:15)
[2018-09-28] MEDS: METOPROLOL TARTRATE 25 MG TAB PO SCH ×3 (13:29→20:08)
--- OUTSIDE RECORDS SUMMARY | 2018-09-28 13:45 | XMS REPORT | Clinical Summary ---
Author Author [facility] Organization [facility] Address Unknown Phone Unavailable Care Team Providers Care Park Guard Name Role Phone Junior Kilgore MD PCP [...] Cough. 07/04/2018 Discontinued fluticasone propionate Use 1 [place] 16 g 1 (FLONASE) 50 in each 9 mcg/actuation nasal nostril daily sprayIndications: Sinus for 7 days. congestion 08/27/2018 Discontinued rivaroxaban (XARELTO) 20 Take 1 tablet 30 tablet 11 mg tabletIndications: by mouth 9 History of atrial daily (with fibrillation dinner) for 360 days. 07/11/2018 mometasone (NASONEX) 50 Use 1 [place] 17 g 1 mcg/actuation nasal daily for [...] Procedure Patience Brown MD Results 06/27/2018 Telephone [facility] 06/27/2018 Travel Patience Brown MD Sinus congestion (Primary Dx); Headache, unspecified headache type 06/26/2018 Office Visit [facility] 06/26/2018 Travel Junior Kilgore MD Exposure to influenza (Primary Dx); Flu-like symptoms 04/17/2018 Office Visit [facility] Junior Kilgore MD Hyperlipidemia, unspecified hyperlipidemia type 04/12/2018 Lab Appointment Lab Junior Kilgore MD Essential hypertension (Primary Dx); History of atrial fibrillation; Dietary counseling for Above / Below Normal BMI; Exercise counseling for Above Normal BMI Only!; Hyperlipidemia, unspecified hyperlipidemia type; Upper respiratory tract infection, unspecified type; Lateral epicondylitis of left elbow 04/05/2018 Office Visit [facility] 04/05/2018 Travel Sallie Agustin RN 02/07/2018 Nurse Triage Nila Montejo LVN Results 01/26/2018 Telephone [facility] Velia Mcgee DPM Fungal [...] Specialty Luis F Anaya [facility] [address] [facility] [address] [address] [place] [address] 10/04/2018 Office Visit Psychiatry Junior Kilgore MD [address] [place] [id number] ANNUAL PHYSICAL EXAM ONLY PER ST [...] LIVER PROFILE Routine 04/12/2018 Hyperlipidemia, 12:48 PM MANAGER COMMODITIES unspecified hyperlipidemia type ALANINE Routine 01/22/2018 Fungal toenail infection AMINOTRASFERASE/ASPARTATE 10:21 AM MANAGER COMMODITIES AMINOTRANSFERASE (ALT/AST) LIPID PROFILE Routine 01/22/2018 History of atrial 10:21 AM MANAGER COMMODITIES fibrillation COMPREHENSIVE METABOLIC Routine 01/22/2018 History of atrial PANEL 10:21 AM MANAGER COMMODITIES fibrillation 24 HOUR HOLTER MONITOR Routine 01/11/2018 Paroxysmal atrial 11:52 AM MANAGER COMMODITIES fibrillation 12 LEAD EKG Routine 01/08/2018 Paroxysmal atrial 2:36 PM MANAGER COMMODITIES fibrillation XRAY OS CALCIS 2 VIEWS Routine 10/27/2017 Pain of left heel MIN 10:14 AM CDT 12 LEAD EKG Routine 10/16/2017 Persistent atrial 4:01 PM CDT fibrillation after 09/27/2017 Results * 12 LEAD EKG (08/27/2018 3:46 PM CDT) 12 LEAD EKG FOR [facility] Test Date:2018-08-27 Pat Name: CHANNING Gilliland partment: Room: Gender: M Pot Operator: [id number] :1961-0 824 Requested By: JERILYN Mei Order Number: [id number] Reading MD: Ritesh Ceron Measurements Intervals [place] Rate: 71 P:58 WY: 153 QRS: 17 QRSD: 91 T:31 QT: 366 QTc:399 Interpretive Statements SINUS RHYTHM POSSIBLE RIGHT VENTRICULAR CONDUCTION DELAY Electronically Signed On 08-27-2018 16:02:13 CDT by Ritesh Ceron Specimen Performing Organization Address City/State/Zipcode Phone Number SMS * MYOCARDIAL PERFUSION SPECT REST/STRES MULTIPLE (07/30/2018 9:48 AM CDT) MYOCARDIAL Myocardial Perfusion SMS PERFUSION SPECT Report REST/STRES CHANNING FENG Age:57Gender: M :1960 Exam Date: 07/30/2018 07:32 Exam Location:[facility] Nuc Ordering Phys: JERILYN LORENZ Referring Phys: Reading Phys:Wale Santos MD Fellow Phys: Fellow Phys: Resident: Technologist: Radha Chan Reason For Exam: Indications: ICD-9 Codes: Exam Type: MYOCARDIAL PERFUSION SPECT REST/STRES MULTIPLE Procedure CPT: 86145 Additional CPT: BP:/ HR: Risk Factors: Previous [...] left ventricular function with ejection fraction 64% Benson Control: Do not remove! Wale Santos MD (Electronically Signed) Final Date:30 July 2018 13:49 Specimen Performing Organization Address [facility] Phone Number SMS * TREADMILL STRESS-TRACING ONLY (07/30/2018 8:41 AM CDT) Stress Test [facility] Loi Lazo [facility] Test Date:2018-07-30 Pat Name: CHANNING Gilliland partment: Room: Gender: Pot Operator: LILIANA SENIOR :1961-0 10[birth year]20 Requested By: JULITO Ruiz Order Number: [id number] Reading MD: Camila Velasquez Interpretive Statements The [...] by Camila Velasquez Specimen Performing Organization Address [facility] Phone Number SMS * XRAY RIBS W [...] MD, 07/17/2018 3:08 PM Performing Organization Address [facility] Phone Number [facility] * 12 LEAD EKG (07/17/2018 1:51 PM CDT) 12 LEAD EKG FOR [facility] Test Date:2018-07-17 Pat Name: CHANNING Gilliland partment: [id number] Room: Gender: Pot Operator: [id number] :1961-0 8 Requested By: JUNIOR KILGORE Order Number: [id number] Reading MD: Allison Saba M.D. Measurements Intervals [place] Rate: 61 P:62 WY: 148 QRS: 30 QRSD: 90 T:40 QT: 375 QTc:379 Interpretive Statements SINUS RHYTHM POSSIBLE RIGHT VENTRICULAR CONDUCTION DELAY Electronically Signed On 07-17-2018 16:17:05 CDT by Allison Saba M.D. Specimen Performing Organization Address [facility] Phone Number [facility] * TSH (07/17/2018 1:42 PM CDT) TSH 0.47 (L) 0.57 - 3.74 uIU/mL BT MAIN-STATION 1 Specimen Blood Performing Organization Address [facility] Phone Number MISYS BT MAIN-STATION 1 * CT CHEST W/O CONTRAST (07/05/2018 11:58 AM CDT) Specimen Impressions Performed At IMPRESSION: [facility] Questionable nondisplaced fractures of the anterior left [...] 1 Glucose 103 70 - 110 mg/dL [facility] MAIN-STATION 1 Alkaline 77 34 - 104 U/L LB Phosphatase, S MAIN-STATION 1 Potassium 4.8 3.5 - 5.1 mmol/L [facility] MAIN-STATION 1 Sodium 143 136 - 145 mmol/L [facility] MAIN-STATION 1 ALT 22 7 - 52 U/L [facility] MAIN-STATION 1 AST (SGOT) 25 13 - 39 U/L [facility] MAIN-STATION 1 BUN 19 7 - 25 mg/dL [facility] MAIN-STATION 1 Bilirubin, 0.8 0.2 - 1.2 mg/dL LB Total MAIN-STATION 1 Protein, Total, 6.9 6.0 - 8.3 g/dL LB Serum MAIN-STATION 1 GFR, Estimated >60 mL/min/1.73 m2 [facility] MAIN-STATION 1 eGFR If Africn >60 mL/min/1.73 m2 LB Am MAIN-STATION 1 Anion Gap 6 [facility] MAIN-STATION 1 Specimen Blood Performing Organization Address City/[facility] Phone Number [facility]-ST[facility] 1 * PT/INR/PTT (07/02/2018 4:43 PM CDT) PT 15.8 (H) 11.8 - 15.0 Seconds [facility] MAIN-STATION 4 INR 1.3 [facility] SUGGESTED THERAPEUTIC RANGES: MAIN-STATION 4 INR 2.0-3.0 for MODERATE INTENSITY ANTICOAGULATION INR 2.5-3.5 for HIGH INTENSITY ANTICOAGULATION PTT 32.6 23.6 - 36.4 Seconds [facility] MAIN-STATION 4 Specimen Blood Performing Organization Address [facility] Phone Number [facility] MAIN-STATION 4 * CBC/DIFF (07/02/2018 4:43 PM CDT) WBC 5.6 4.5 - 12.0 K/uL [facility] MAIN-STATION 2 RBC 4.70 4.60 - 6.20 M/uL [facility] MAIN-STATION 2 Hemoglobin 15.0 14.0 - 18.0 g/dL [facility] MAIN-STATION 2 Hematocrit 43.3 40.0 - 54.0 % [facility] MAIN-STATION 2 MCV 92 82 - 92 fL [facility] MAIN-STATION 2 MCH 31.9 (H) 27.0 - 31.0 pg [facility] MAIN-STATION 2 MCHC 34.6 32.0 - 36.0 [...] Performing Organization Address City/State/Zipcode Phone Number MISYS [facility] MAIN-STATION 2 * XRAY CHEST 2 VIEWS [...] MD, 06/27/2018 12:40 PM Performing Organization Address City/[facility] Phone Number SMS * THROAT CULTURE (06/26/2018 4:04 PM CDT) Spec Throat swab [facility] Description Order Comments None [facility] Culture Normal bharat, no Beta BT MICROBIOLOGY Streptococcus isolated Report Status Final 06/29/2018 BT MICROBIOLOGY Specimen Throat Performing Organization Address [facility] Phone Number MISYS [facility] BT MICROBIOLOGY * GROUP A STREP SCREEN (06/26/2018 3:55 PM CDT) Group A Strep Negative NEG [facility] Specimen Other (Specify in Comments) - Throat Performing Organization Address [facility] Phone Number MISYS [facility] * LIVER PROFILE (04/12/2018 12:48 PM MANAGER COMMODITIES) Protein, Total, 6.3 6.0 - 8.3 g/dL [...] MAIN-STATION 1 Specimen Blood Performing Organization Address [facility] Phone Number MISYS BT MAIN-STATION 1 * LIPID PROFILE (01/22/2018 10:21 AM MANAGER COMMODITIES) Cholesterol 207 mg/dL BT MAIN-STATION Comment: 1 REFERENCE RANGE: Desirable: <200 mg/dL Borderline: 200-240 mg/dL High Risk: >240 mg/dL Triglyceride 99 <150 mg/dL BT MAIN-STATION Comment: 1 REFERENCE RANGE: Normal: <150 mg/dL Borderline High: 150-199 mg/dL High: 200-499 mg/dL Very High: >rw=585 mg/dL HDL 55 mg/dL BT MAIN-STATION Comment: 1 Increased CHD risk: <40 mg/dL Decreased CHD risk: >60 mg/dL LDL 132 mg/dL BT MAIN-STATION Comment: 1 REFERENCE RANGE: Optimal: <100 mg/dL Near Optimal: 100-129 mg/dL Borderline High: 130-159 mg/dL High: 160-189 mg/dL Very High: >wi=772 mg/dL Specimen Blood Performing Organization Address [facility] Phone Number MISYS BT MAIN-STATION 1 * ALT/AST (01/22/2018 10:21 AM MANAGER COMMODITIES) ALT 18 7 - 52 U/L BT MAIN-STATION 1 AST (SGOT) 19 13 - 39 U/L BT MAIN-STATION 1 Specimen Blood Performing Organization Address [facility] Phone Number JANICEYS BT MAIN-STATION 1 * 24 HOUR HOLTER MONITOR (01/11/2018 11:52 AM MANAGER COMMODITIES) 24 HOUR HOLTER SMS MONITOR Loi Lazo [facility] Test Date:2018-01-11 Pat Name: CHANNING Gilliland partment: [facility] Room: Gender: Pot Operator: JORDAN SENIOR :10-20 Requested By: JERILYN LORENZ Order Number: [id number] Sacha MD: Ariel Zhao Interpretive Statements 24 hour Holter monitor performed for evaluation of atrial fibrillation. A single reported event of shortness of breath was documented by patient. The monitoring started at 11:52:19 AM and was continued for 23 hr 51 min. [place] of beats [place] [address] with a total analysis duration of 23 [...] any arrhythmias. Electronically Signed On 01-17-2018 8:36:15 MANAGER COMMODITIES by Ariel Zhao Specimen Performing Organization Address City/State/[facility] Phone Number SMS * 12 LEAD EKG (01/08/2018 2:36 PM MANAGER COMMODITIES) [facility] Test Date:2018-01-08 Pat Name: CHANNING Gilliland partment: Room: Gender: Pot Operator: [id number] :[id number] Requested By: Order Number: R alvaro LOPEZ: NARA KAPLAN Measurements Intervals [place] Rate: 72 P:59 WY: 148 QRS: 35 QRSD: 92 T:11 QT: 371 QTc:408 Interpretive Statements SINUS RHYTHM WITH SINUS ARRHYTHMIA NONSPECIFIC T-WAVE ABNORMALITY Electronically Signed On 01-08-18 20:43:50 MANAGER COMMODITIES by NARA KAPLAN Specimen Performing Organization Address [facility] Phone Number SMS * XRAY OS CALCIS 2 VIEWS MIN (10/27/2017 10:14 AM CDT) Specimen Impressions Performed At IMPRESSION: [facility] No acute radiographic abnormality. Dictated By: Amanda [...] MD, 10/27/2017 10:33 AM Performing Organization Address [facility] Phone Number [facility] * 12 LEAD EKG (10/16/2017 4:01 PM CDT) [facility] Test Date:2017-10-16 Pat Name: CHANNING Gilliland partment: Room: Gender: M Pot Operator: Daya CONTI [id number] :1961-0 10-20 Requested By: Order Number: Daya john MD: Darryn De La Cruz Measurements Intervals [place] Rate: 60 P:53 WY: 125 QRS: 15 QRSD: 79 T:20 QT: 403 QTc:403 Interpretive Statements SINUS RHYTHM Electronically Signed On 10-17-17 09:16:19 CDT by Darryn De La Cruz Specimen Performing Organization Address City/State/Zipcode Phone Number SMS after 09/27/2017 Insurance Type Payer Benefit Subscriber ID Effective Phone Address Plan / Dates Group [facility] [employer] FINANCIAL xxxxxxx 2018-2 [address] [place] [address] [place] [facility] xxxxxxx 2018- [phone] [address] INDIGENT FAMILY 2019 [id number] PLANNING [facility] [address]
--- NOTE | 2018-09-28 18:00 | Consultation ---
DATE OF CONSULTATION: 09/28/2018 Cardiology Consultation REQUESTING PHYSICIAN: Brandon Holguin MD REASON FOR CONSULTATION: Atrial fibrillation. HISTORY OF PRESENT ILLNESS: This is a 57-year-old male with history of hypertension and atrial fibrillation who presents with complaints of chest pain and dizziness. The patient indicates that he follows with [facility] for his cardiac care. He had a nuclear stress test one month ago which was reportedly normal and he was changed from Xarelto to aspirin for CVA prophylaxis due to low CHADS-VASc score. The patient reports that he woke up this morning and noted his heart rate was irregular. This was associated with chest pain radiating to the neck, he described it as tightness, 3 to 4/10 in severity. There was no shortness of breath, nausea, or diaphoresis. In addition, he reports that when he stood up to walk to the bathroom, he felt lightheaded. He otherwise denies edema, orthopnea, or PND. He therefore presented to the ER for further evaluation. REVIEW OF SYSTEMS: A 12-point review of systems was obtained and is negative except as per HPI. PAST MEDICAL HISTORY: 1. Hypertension. 2. Atrial fibrillation. 3. Sleep apnea. PAST SURGICAL HISTORY: Hemorrhoidectomy. ALLERGIES: PLEASE SEE EMR. MEDICATIONS: Please see medication list. SOCIAL HISTORY: He denies tobacco or illicit drugs. He does drink alcohol occasionally. FAMILY HISTORY: Denies family history of heart disease. PHYSICAL EXAMINATION: VITAL SIGNS: Temperature 98.7 degrees, pulse 120, respiratory rate 16, blood pressure 108/76, oxygen saturation 97% on room air. GENERAL: Awake, alert, well-developed and well-nourished man, in no acute distress. HEENT: Normocephalic, atraumatic. Pupils equal. No scleral icterus. NECK: Supple. No thyromegaly or cervical lymphadenopathy. No carotid bruits. LUNGS: Clear to auscultation bilaterally. No wheeze or crackles. CARDIOVASCULAR: Tachycardic, irregularly irregular. No murmur. Normal S1 and S2. ABDOMEN: Soft and nontender. EXTREMITIES: No edema. NEUROLOGIC: Nonfocal exam. LABORATORY DATA: WBC 5.96, hemoglobin 14.7, hematocrit 38.7, platelets 169. Sodium 140, potassium 3.7, chloride 109, CO2 of 20, BUN 25, creatinine 1. EKG atrial fibrillation with rapid ventricular response. IMPRESSION: 1. Chest pain. 2. Atrial fibrillation with rapid ventricular response. 3. Lightheadedness. 4. Hypertension. RECOMMENDATIONS: Atenolol has been discontinued. The patient indicates that he would occasionally skip doses of atenolol due to low blood pressure. We will change to metoprolol and monitor blood pressure closely. Check orthostatic vitals. Trend cardiac biomarkers to rule out myocardial infarction. If the patient rules out for myocardial infarction, no further cardiac evaluation is indicated at this time as the patient had a recent nuclear stress test at [facility]. Monitor the patient on telemetry. We will titrate metoprolol as necessary to achieve rate control. May need to add digoxin if he remains tachycardic. Thank you for this consult. We will continue to follow. MD MARGARETH Mcdonald/MODL /[id number]
[2018-09-28 19:06] LABS: CREATINE KINASE MB 2.6 ng/mL (0-5.0)
[2018-09-28] MEDS ORDERED: AMIODARONE 900MG 500 ML IV ONE (20:55)
[2018-09-28] MEDS ORDERED: AMIODARONE HCL 150MG 100 ML ONE (20:55)
[2018-09-28] MEDS ORDERED: AMIODARONE HCL 150 MG/100 ML BAG IV ONE (21:00)
[2018-09-28] MEDS ORDERED: AMIODARONE HCL 900 MG in DEXTROSE 5% 500ML 500 ML IV SCH (21:00)
[2018-09-28] MEDS: AMIODARONE HCL 900 MG in DEXTROSE 5 % 500ML BOTTLE 500 ML IV SCH (21:20)
[2018-09-28 22:00] VITALS: BP_SYST 108; BP_SYST 123; BP_DIAS 81; BP_DIAS 91
--- NOTE | 2018-09-28 22:00 | NUR ---
Pt arrived to ICU in wheelchair. Report received from DENI Garg RN, pt ambulatory, AAO x4, pt has no complaints at this time. HR in 110s, BP stable.
[2018-09-28] MEDS ORDERED: ASPIRIN325 MG PO (22:56)
[2018-09-28 23:00] VITALS: BP 106/62
[2018-09-29] VITALS (20 sets, daily range): BP systolic 94–120; BP diastolic 59–90
--- NOTE | 2018-09-29 02:50 | NUR ---
Lab called to ask why the cardiac markers lab still wasn't pending in the computer. Notified that they are short staffed and running behind.
--- NOTE | 2018-09-29 04:23 | NUR ---
Lab called again to ask why cardiac markers still haven't resulted, notified that the labs are running now.
[2018-09-29 04:29] LABS: CREATINE KINASE MB 2.5 ng/mL (0-5.0)
--- NOTE | 2018-09-29 06:15 | NUR ---
Converted to SR 60s
[2018-09-29] MEDS ORDERED: ASPIRIN 325 MG TAB EC PO SCH (09:00)
[2018-09-29] MEDS: METOPROLOL TARTRATE 25 MG TAB PO SCH ×2 (09:00→17:00)
[2018-09-29 10:59] LABS: CREATINE KINASE MB 2.1 ng/mL (0-5.0)
[2018-09-29 11:28] LABS: CHOL/HDL RATIO 3.3 (3.9-4.7)
[2018-09-29] MEDS: AMIODARONE HCL 900 MG in DEXTROSE 5 % 500ML BOTTLE 500 ML IV SCH (12:42)
--- NOTE | 2018-09-29 13:22 | NUR ---
Patient states he took his Atenolol 25 mg home medication earlier today. Expressed to patient that he needs to speak with me prior to taking any medication so we can discuss it with the physicians as he is on Amiodarone gtt.
--- NOTE | 2018-09-29 17:33 | NUR ---
Dr Yared Larsen to bedside. Okay from cardiology to discharge home. Paged Dr Holguin.
--- NOTE | 2018-09-29 17:36 | NUR ---
Per tony Trent for patient to discharge home with follow up per his primary operator at [facility].
--- NOTE | 2018-09-29 17:50 | NUR ---
Paged Dr Yared Larsen for further information necessary for patient discharge Rx. Awaiting callback.
[2018-09-29] MEDS ORDERED: FLECAINIDE ACE100 MG PO (18:11)
--- NOTE | 2018-09-29 18:22 | NUR ---
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
--- NOTE | 2018-09-29 20:41 | Progress Note ---
DATE: 09/29/2018 Cardiology Progress Note SUBJECTIVE: No major events overnight, now converted to sinus rhythm. OBJECTIVE: VITAL SIGNS: Temperature afebrile, pulse 68, respiratory rate 15, blood pressure 112/83, and saturating 100% on room air. GENERAL: man, in no acute distress. CARDIOVASCULAR: Regular rate and rhythm. No murmurs, rubs, or gallops. LUNGS: Clear to auscultation bilaterally. ABDOMEN: Soft, nontender, nondistended. NEURO AND PSYCH: Alert and oriented to person, place, and time. Normal affect. INPATIENT MEDICATIONS: Reviewed. LABORATORY DATA: Reviewed. TELEMETRY DATA: Reviewed. ASSESSMENT AND PLAN: Paroxysmal atrial fibrillation. PLAN: The patient follows with Cardiology at [facility]. Continue treatment with atenolol. CHADS-VASc 2 score is only 1. Continue aspirin daily. The patient given prescription for flecainide as a pill in a pocket strategy, so he does not need to keep going back to the ER. The patient reportedly had a normal stress test done at [facility] recently. He has no history of coronary artery disease or structural heart disease. Thank you for this consult. The patient is okay to be discharged. MD NEELA Vazquez/ANNE /[id number]
--- NOTE | 2018-10-01 10:29 | Discharge Summary ---
DISCHARGE DIAGNOSES: 1. Atrial fibrillation with rapid ventricular rate. 2. Hypertension. HISTORY OF PRESENT ILLNESS: The patient is a gentleman, who presented with atrial fibrillation with RVR as well as hypertension, who was brought in and placed in ICU, was placed on medication with significant improvement of his atrial fibrillation. At the time of discharge, he was cleared by Cardiology. He was discharged on p.o. flecainide as well as home atenolol and he is to follow up in 1 to 2 weeks with his PCP as well as with chart picker. Please see hospital chart for full details. MD ANIA Cueva/ANNE /[id number]
== END 2018-09-29 18:28 | disposition home or self-care (01) | DRG 310 ==
LOC: ER 09:13 → ERHOLD 12:20 → ICU 22:00
PROVIDERS: ADMIT Internal Medicine; ATTEND Internal Medicine
DX: I48.91 Unspecified atrial fibrillation (principal); G47.30 Sleep apnea, unspecified; E66.9 Obesity, unspecified; Z68.31 Body mass index [BMI] 31.0-31.9, adult
CPT/HCPCS: 36415; 71045; 80048; 80061; 82550; 82553; 84484; 85025; 93005; 99284; 99285; J1650

== ENCOUNTER 2019-06-10 10:26 | Observation (INO) | payer SELFPAY ==
[~2019-06-10] VITALS: Ht 167.6 cm; Wt 88.5 kg
[~2019-06-10 10:26] MED LIST changes: +ASPIRIN325 MG PO; +FLECAINIDE ACE100 MG PO
[2019-06-10 11:07] LABS: BASOPHILS % 0.4 % (0.0-1.0); EOSINOPHILS # (AUTO) 0.1 (0.0-0.4); EOSINOPHILS % 2.8 % (0.0-6.0); HEMATOCRIT 39.5 % (38.2-49.6); HEMOGLOBIN 14.6 g/dL (14.0-18.0); LYMPHOCYTES # (AUTO) 2.1 (1.0-3.2); MEAN CORPUSCULAR HEMOGLOBIN 32.5 pg (28-32); MONOCYTES # (AUTO) 0.7 (0.2-0.8); MONOCYTES % 14.2 % (4.4-11.3); NEUTROPHILS # (AUTO) 1.7 (2.1-6.9); NEUTROPHILS % 36.4 % (38.7-80.0); PLATELET COUNT 160 x10e3/uL (140-360); RED BLOOD COUNT 4.49 x10e6/uL (4.3-5.7)
[2019-06-10 11:13] LABS: INR 1.01; PROTHROMBIN TIME 13.9 seconds (11.9-14.5)
[2019-06-10 11:14] LABS: PARTIAL THROMBOPLASTIN TIME 29.8 seconds (23.8-35.5)
[2019-06-10 11:21] LABS: ALANINE AMINOTRANSFERASE 20 IU/L (0-55); ALBUMIN 3.5 g/dL (3.5-5.0); ALBUMIN/GLOBULIN RATIO 1.4 (0.8-2.0); ALKALINE PHOSPHATASE 76 IU/L (40-150); ANION GAP 11.6 mmol/L (8-16); BLOOD UREA NITROGEN 24 mg/dL (7-26); BUN/CREATININE RATIO 27 (6-25); CARBON DIOXIDE 23 mmol/L (22-29); CHLORIDE 110 mmol/L (98-107); CREATINE KINASE 231 IU/L (30-200); EST GLOMERULAR FILTRATION RATE > 60 ML/MIN (60-); GLUCOSE 124 mg/dL (74-118); POTASSIUM 3.6 mmol/L (3.5-5.1); SODIUM 141 mmol/L (136-145)
--- NOTE | 2019-06-10 11:39 | NUR ---
CALLED AND SPOKE WITH KENDELL AT [facility] REGARDING PT D/C.
--- NOTE | 2019-06-10 11:45 | NUR ---
CALLED RADIOLOGY FOR ETA OF STAT XRAY....
--- NOTE | 2019-06-10 12:45 | Diagnostic Imaging Report ---
EXAMINATION: CHEST 2 VIEWS INDICATION: Atrial fibrillation, chest pain COMPARISON: Chest radiograph of 09/28/2018 FINDINGS: LINES/TUBES:EKG leads overlie the chest. LUNGS:The lungs are well-inflated. No focal consolidation or pulmonary edema. PLEURA:No pleural effusion or pneumothorax. MEDIASTINUM:The cardiomediastinal silhouette appears normal in size and shape. BONES/SOFT TISSUES:No acute osseous injury. ABDOMEN:No free air under the diaphragm. IMPRESSION: No focal pneumonia or pulmonary edema. Signed by: Jaspal Tello MD on 06/10/2019 12:41 PM
--- NOTE | 2019-06-10 13:05 | NUR ---
pt states he is non complaint with medications because his dr's here tell him one thing, and then gets confused because his doctors at [facility] say different information. pt admits to being a drinker of shots and takes xanax.
[2019-06-10] MEDS ORDERED: DILTIAZEM HCL 5 MG/ML 5 ML VIAL IV STA (13:21)
[2019-06-10] MEDS ORDERED: LISINOPRIL10 MG PO (13:39)
[2019-06-10 14:05] VITALS: BP 106/71
[2019-06-10 15:09] VITALS: BP 106/71
[2019-06-10 15:10] VITALS: BP 106/71
[2019-06-10 15:24] LABS: CREATINE KINASE 214 IU/L (30-200)
--- NOTE | 2019-06-10 15:25 | NUR ---
SPOKE WITH HOWIE BLUE REGARDING NEW ADMIT. NEW ORDER TO CONSULT DR. Yared ANDERSON. NEW ORDERS IMPLEMENTED.
[2019-06-10 16:30] VITALS: BP 110/59
[2019-06-10] MEDS ORDERED: ACETAMINOPHEN 325 MG TAB PO PRN ×2 (16:30→20:30)
[2019-06-10 19:42] LABS: CREATINE KINASE 219 IU/L (30-200)
[2019-06-10 20:00] VITALS: BP 114/81
[2019-06-10] MEDS ORDERED: ACETAMINOPHEN/CODEINE 300MG - 30MG TAB PO PRN (20:30)
[2019-06-10] MEDS ORDERED: ONDANSETRON HCL INJ 2MG/ML 2ML 2 MG/ML VIAL IV PRN (20:30)
[2019-06-10 21:00] VITALS: BP 114/81
[2019-06-11] VITALS (9 sets, daily range): BP systolic 83–181; BP diastolic 53–168
--- NOTE | 2019-06-11 00:23 | NUR ---
RECEIVED REPORT FROM NURSE, WILL CONTINUE TO MONITOR.
[2019-06-11] MEDS ORDERED: ALPRAZOLAM0.25 M1 PO (04:36)
[2019-06-11 05:54] LABS: BASOPHILS % 0.5 % (0.0-1.0); EOSINOPHILS # (AUTO) 0.1 (0.0-0.4); EOSINOPHILS % 1.5 % (0.0-6.0); HEMATOCRIT 39.8 % (38.2-49.6); HEMOGLOBIN 14.6 g/dL (14.0-18.0); LYMPHOCYTES # (AUTO) 3.7 (1.0-3.2); MEAN CORPUSCULAR HEMOGLOBIN 32.7 pg (28-32); MEAN CORPUSCULAR HGB CONC 36.7 g/dL (31-35); MONOCYTES # (AUTO) 0.9 (0.2-0.8); MONOCYTES % 11.8 % (4.4-11.3); NEUTROPHILS # (AUTO) 3.2 (2.1-6.9); NEUTROPHILS % 39.8 % (38.7-80.0); PLATELET COUNT 187 x10e3/uL (140-360); RED BLOOD COUNT 4.47 x10e6/uL (4.3-5.7); RED CELL DISTRIBUTION WIDTH 12.2 % (11.7-14.4)
[2019-06-11 06:07] LABS: ALANINE AMINOTRANSFERASE 20 IU/L (0-55); ALBUMIN 3.5 g/dL (3.5-5.0); ALBUMIN/GLOBULIN RATIO 1.3 (0.8-2.0); ALKALINE PHOSPHATASE 75 IU/L (40-150); ANION GAP 10.2 mmol/L (8-16); BLOOD UREA NITROGEN 19 mg/dL (7-26); BUN/CREATININE RATIO 18 (6-25); CALCIUM 8.3 mg/dL (8.4-10.2); CARBON DIOXIDE 26 mmol/L (22-29); CHLORIDE 109 mmol/L (98-107); CREATININE, SERUM 1.07 mg/dL (0.72-1.25); EST GLOMERULAR FILTRATION RATE > 60 ML/MIN (60-); GLUCOSE 100 mg/dL (74-118); POTASSIUM 4.2 mmol/L (3.5-5.1); SODIUM 141 mmol/L (136-145)
--- NOTE | 2019-06-11 07:07 | NUR ---
report given to am nurse, patient continue resting in bed, remain on telemetry, call light in reach.
[2019-06-11 07:32] LABS: CREATINE KINASE 190 IU/L (30-200)
[2019-06-11] MEDS: FAMOTIDINE 20 MG TAB PO SCH ×2 (08:11→17:15)
[2019-06-11] MEDS: METOPROLOL TARTRATE INJ 1 MG/ML VIAL IV PRN ×2 (08:12→08:28)
[2019-06-11] MEDS ORDERED: ONDANSETRON HCL 4 MG ORAL DISINTEGRATING TAB PO PRN (09:15)
[2019-06-11] MEDS ORDERED: ALPRAZOLAM 0.25 MG TAB PO PRN (09:15)
[2019-06-11 09:35] LABS: CHOL/HDL RATIO 3.4 (3.9-4.7)
[2019-06-11] MEDS ORDERED: ATENOLOL 50 MG TAB PO SCH (09:45)
--- NOTE | 2019-06-11 10:45 | NUR ---
ASSESSMENT: Spiritual concern Pt worried about illness. Pt states he has experienced this once a year for 5 years. Pt states he has a 12 yo daughter and she is concerned about his illness. Pt hopeful that his health will improve "in the next 24 hours." Intervention: Provided unhurried empathic listening. Facilitated illness review. Provided information on how to contact hot strip mill inspector, if needed. Outcome: Pt expressed appreciation for visit. Will follow as able. ROSI ALLRED Senior Network Administrator Spiritual Care Department O: [phone]
--- NOTE | 2019-06-11 11:00 | NUR ---
NOTIFIED DR. Yared ANDERSON OF PATIENT'S AFIB SUSTAINING IN 130-140'S, PER DR Sue ANDERSON GIVE 5MG METOPROLOL IV NOW AND METOPROLOL TARTRATE 50MG Q12H.
[2019-06-11] MEDS ORDERED: METOPROLOL TARTRATE INJ 1 MG/ML VIAL IV ONE (11:30)
[2019-06-11] MEDS: LISINOPRIL 10 MG TAB PO SCH (15:54)
[2019-06-11] MEDS: METOPROLOL TARTRATE 50 MG TAB PO SCH ×2 (15:54→21:00)
--- NOTE | 2019-06-11 17:38 | NUR ---
NOTIFIED DR. Yared ANDERSON OF PATIENT'S HEAR RHYTHM CONTINUING TO BE IN AFIB AT 120'S-140'S. VITAL SIGNS ARE BP 102/70 HR 131 AFIB PER TELEMETRY, PER DR. Yared ANDERSON GIVE DIGOXIN 500MCG IV DOSE NOW AND ANOTHER DOSE TOMORROW AM 0900. DR. Yared ANDERSON NOTIFIED OF PATIENT'S BP 102/70, DR. Yared ANDERSON OK WITH MEDICATION ADMINISTRATION WITH BP BEING 102/70.
[2019-06-11] MEDS ORDERED: DIGOXIN INJ 0.25 MG/ML 2 ML AMP IV ONE (18:00)
--- NOTE | 2019-06-11 18:04 | NUR ---
IN TO ROOM TO MEDICATE PATIENT WITH DIGOXIN, PATIENT REFUSED MEDICATION ADMINISTRATION.
--- NOTE | 2019-06-11 19:06 | Consultation ---
DATE OF CONSULTATION: Cardiology Consultation HISTORY OF PRESENT ILLNESS: This is a 58-year-old man with a history of paroxysmal atrial fibrillation, hypertension, and obesity, presents to the emergency department with palpitations and dizziness. He has episodes of atrial fibrillation in the past approximately one per year. This has been triggered by alcohol use in the past in addition to inadequate use of his CPAP machine. His symptoms were progressively worsening, moderate to severe in intensity, no associated chest pain or prior syncope. He was found to be in atrial fibrillation with rapid ventricular response. He was taken off Xarelto in the past and told only to take aspirin due to low CHADS-VASc score. He has no history of cerebrovascular accidents. REVIEW OF SYSTEMS: A 12-point review of system was conducted, is negative except as stated above in the HPI. PAST SURGICAL HISTORY: None recent. PAST FAMILY HISTORY: Noncontributory. CURRENT SOCIAL HISTORY: Occasional alcohol use. Denies any tobacco or illicit drug use. ALLERGIES: PENICILLIN. MEDICATIONS: See medication reconciliation form. PHYSICAL EXAMINATION: VITAL SIGNS: Heart rate ranging from 130s to 140s. Blood pressure remaining stable ranging from 120 to 130s, respirations are 16. He is afebrile. Oxygen saturation is normal on room air. GENERAL: Well appearing, well built, no apparent distress. Alert and orient x3. HEAD: Normocephalic and atraumatic. EYES: The extraocular muscles are intact. Conjunctivae clear. NECK: No JVD. No bruits. CARDIOVASCULAR: He is irregularly irregular. Tachycardic. Normal S1 and S2. LUNGS: Clear to auscultation. ABDOMEN: Soft, nontender, nondistended. EXTREMITIES: No clubbing, cyanosis or edema. VASCULAR: Diminished pulses. SKIN: Warm, dry, intact. NEUROLOGIC: No focal deficits noted. Cranial nerves grossly intact. PSYCHIATRIC: Normal mood and affect. LABORATORY DATA: Reviewed. Echocardiogram showed preserved left ventricular systolic function with no significant valvular abnormalities. A 12-lead electrocardiogram and telemetrymonitor showed atrial fibrillation with rapid ventricular response. IMPRESSION: 1. Atrial fibrillation with rapid ventricular response. 2. Hypertension. 3. Obesity. RECOMMENDATIONS: Change atenolol to metoprolol 25 mg q.6 hours and titrate as necessary. He may require amiodarone infusion if this does not improve his heart rates. Continue all other current cardiovascular medications. Rule out for myocardial infarction. We will continue to follow. DO NAT Morris/ANNE /[id number]
[2019-06-12 04:00] VITALS: BP 97/58
[2019-06-12 05:57] LABS: ANION GAP 9.3 mmol/L (8-16); BASOPHILS % 0.5 % (0.0-1.0); BLOOD UREA NITROGEN 22 mg/dL (7-26); BUN/CREATININE RATIO 20 (6-25); CALCIUM 7.5 mg/dL (8.4-10.2); CARBON DIOXIDE 27 mmol/L (22-29); CHLORIDE 108 mmol/L (98-107); CREATININE, SERUM 1.08 mg/dL (0.72-1.25); EOSINOPHILS # (AUTO) 0.2 (0.0-0.4); EOSINOPHILS % 2.3 % (0.0-6.0); EST GLOMERULAR FILTRATION RATE > 60 ML/MIN (60-); GLUCOSE 117 mg/dL (74-118); HEMOGLOBIN 13.7 g/dL (14.0-18.0); LYMPHOCYTES # (AUTO) 3.2 (1.0-3.2); MEAN CORPUSCULAR HEMOGLOBIN 33.3 pg (28-32); MONOCYTES # (AUTO) 0.9 (0.2-0.8); MONOCYTES % 13.5 % (4.4-11.3); NEUTROPHILS # (AUTO) 2.3 (2.1-6.9); NEUTROPHILS % 34.4 % (38.7-80.0); PLATELET COUNT 184 x10e3/uL (140-360); POTASSIUM 4.3 mmol/L (3.5-5.1); RED BLOOD COUNT 4.11 x10e6/uL (4.3-5.7); RED CELL DISTRIBUTION WIDTH 12.2 % (11.7-14.4); SODIUM 140 mmol/L (136-145)
[2019-06-12 07:22] LABS: CREATINE KINASE 158 IU/L (30-200)
[2019-06-12 07:37] VITALS: BP 109/71
--- NOTE | 2019-06-12 08:30 | NUR ---
GAVE PACKET OF INFORMATION WITH COMM[employer]ITY [employer] FOR ASSISTANCE WITH LOW TO NO INCOME TO PATIENT. RESOURCES THAT PATIENT MAY BE ABLE TO FOLLOW UP UPON DISCHARGE. PT EDUCATED ON EACH RESOURCE AND UNDERSTANDING HOW TO FOLLOW UP TO SEE IF QUALIFIED FOR EACH RESOURCE.
[2019-06-12 08:42] VITALS: BP 109/71
[2019-06-12] MEDS ORDERED: DIGOXIN INJ 0.25 MG/ML 2 ML AMP IV ONE ×2 (09:00→10:30)
[2019-06-12] MEDS: LISINOPRIL 10 MG TAB PO SCH ×2 (09:00→16:17)
[2019-06-12] MEDS ORDERED: METOPROLOL TART50 MG PO (09:43)
--- NOTE | 2019-06-12 10:06 | NUR ---
spoke with Dr. Ernesto Larsen who states we can hold pt's AM dose of Digoxin; pt running 70's in sinus rhythm at this time. states Dr. Nelson will be rounding later this afternoon and can clear patient. wants pt started on 20mg Xarelto qD with dinner.
[2019-06-12] MEDS: FAMOTIDINE 20 MG TAB PO SCH ×2 (10:26→16:16)
[2019-06-12] MEDS: METOPROLOL TARTRATE 50 MG TAB PO SCH (10:27)
[2019-06-12] MEDS ORDERED: XARELTO20 MG PO (13:13)
[2019-06-12 16:42] VITALS: BP 159/98
[2019-06-12] MEDS ORDERED: RIVAROXABAN 20 MG TABLET PO SCH (17:00)
--- NOTE | 2019-06-12 17:41 | Progress Note ---
DATE: Cardiology Progress Note SUBJECTIVE: The patient feeling better, ready to go . Denies any palpitation. OBJECTIVE: VITAL SIGNS: Temperature is 98, heart rate 75, respirations are 20, blood pressure 109/71, ox saturation 96% on room air. GENERAL: Well appearing. No apparent distress. CARDIOVASCULAR: Regular rate and rhythm. LUNGS: Clear to auscultation. ABDOMEN: Soft, nontender, nondistended. EXTREMITIES: No edema. CARDIOVASCULAR MEDICATIONS: Reviewed. LABORATORY DATA: Reviewed. TELEMETRY: Monitoring revealed normal sinus rhythm. IMPRESSION: 1. Paroxysmal atrial fibrillation. 2. Hypertension. 3. Obesity. RECOMMENDATIONS: Continue metoprolol 50 mg b.i.d. He ruled out for acute myocardial infarction. Echocardiogram showed preserved left ventricular systolic function. Continue Xarelto for stroke risk reduction. These medication recommendations were discussed with the patient, however, seems reluctant to start these medications. Risks, benefits, alternatives of doing so were discussed with the patient. Ryan Mast DO BM/MODL /[id number]
--- NOTE | 2019-06-17 12:27 | Discharge Summary ---
ADMISSION DIAGNOSES: Atrial fibrillation with rapid ventricular response, hypertension, anxiety, obesity with a BMI of 31.5, rhabdomyolysis, and obstructive sleep apnea. DISCHARGE DIAGNOSES: Atrial fibrillation with rapid ventricular response, hypertension, anxiety, obesity with a BMI of 31.5, rhabdomyolysis, and obstructive sleep apnea. HISTORY: AFib with RVR, hypertension, ALIX with CPAP use, anxiety, and childhood asthma. SURGICAL HISTORY: Left flank cyst removal, left hand carpal tunnel release, hemorrhoidectomy. FAMILY HISTORY: The patient's sister has diabetes and patient's father has cancer. SOCIAL HISTORY: Occasional alcohol use. HOSPITAL COURSE: A 58-year-old male admits with complaints of palpitation. He says he has been working out and eating better, so he has not taken his medications as prescribed. He said he used Xarelto and Coumadin, but his primary care took him off. On admission, the patient was in AFib with RVR, heart rate over 140. Diltiazem was given and Cardiology was consulted. Echo showed an EF of 60% to 65%. Chest x-ray showed no pneumonia or pulmonary edema. TSH was within normal limits. Cardiology changed the patient's blood pressure from atenolol to metoprolol. Even while in the hospital, the patient refused some of his medicines and says that he does not understand why the doctors do not just listen to him. He will discharge home with a prescription for metoprolol and Xarelto. He will follow up with primary care in 1 to 2 weeks. He says he follows up a doctor at [facility], but he was worried about driving that far, so he came to [facility] instead. He was advised to take his medicines as prescribed, but is persistent that he will take it when he feels like he needs it. At the time of discharge, vital signs are stable, the patient afebrile. Dictated by Jacqueline Montez, MIRZA MD JOHNNY Ray/ANNE /[id number]
== END 2019-06-12 16:55 | disposition home or self-care (01) ==
LOC: ER 10:26 → ERHOLD 13:19 → MED/SURG 15:08
PROVIDERS: ADMIT Internal Medicine; ATTEND Internal Medicine
DX: I48.0 Paroxysmal atrial fibrillation (principal); Z79.01 Long term (current) use of anticoagulants; I10 Essential (primary) hypertension; E66.9 Obesity, unspecified; Z68.31 Body mass index [BMI] 31.0-31.9, adult; G47.33 Obstructive sleep apnea (adult) (pediatric); Z91.128 Patient's intentional underdosing of medication regimen for other reason
CPT/HCPCS: 36415; 71046; 80048; 80053; 80061; 82550; 82553; 84443; 84484; 85025; 85610; 85730; 93005; 93306; 99284; G0378; J1160

== ENCOUNTER → 2019-09-04 | Emergency (ER) | payer SELFPAY ==
[~2019-09-04] MED LIST changes: +ALPRAZOLAM0.25 M1 PO; +LISINOPRIL10 MG PO; +METOPROLOL TART50 MG PO
== END | disposition left against medical advice (07) ==
LOC: ER 19:02
DX: R52 Pain, unspecified (principal)

== ENCOUNTER 2021-01-22 23:25 | Emergency (ER) | payer SELFPAY ==
[~2021-01-22] VITALS: Ht 167.6 cm; Wt 88.5 kg
[2021-01-22] MEDS ORDERED: ASPIRIN 81 MG CHEW TAB PO ONE (23:30)
[2021-01-22 23:38] LABS: BASOPHILS % 0.4 % (0.0-1.0); EOSINOPHILS # (AUTO) 0.2 (0.0-0.4); EOSINOPHILS % 2.8 % (0.0-6.0); HEMATOCRIT 40.5 % (38.2-49.6); HEMOGLOBIN 14.7 g/dL (14.0-18.0); MEAN CORPUSCULAR HGB CONC 36.3 g/dL (31-35); MONOCYTES # (AUTO) 0.9 (0.2-0.8); MONOCYTES % 11.1 % (4.4-11.3); NEUTROPHILS # (AUTO) 3.9 (2.1-6.9); NEUTROPHILS % 48.6 % (38.7-80.0); PLATELET COUNT 180 x10e3/uL (140-360); RED BLOOD COUNT 4.45 x10e6/uL (4.3-5.7); RED CELL DISTRIBUTION WIDTH 11.9 % (11.7-14.4)
[2021-01-22 23:58] LABS: ALANINE AMINOTRANSFERASE 29 IU/L (0-55); ALBUMIN 4.1 g/dL (3.5-5.0); ALBUMIN/GLOBULIN RATIO 1.3 (0.8-2.0); ALKALINE PHOSPHATASE 72 IU/L (40-150); ANION GAP 12.8 mmol/L (8-16); BLOOD UREA NITROGEN 23 mg/dL (7-26); BUN/CREATININE RATIO 20 (6-25); CALCIUM 8.9 mg/dL (8.4-10.2); CARBON DIOXIDE 24 mmol/L (22-29); CHLORIDE 110 mmol/L (98-107); CREATINE KINASE 276 IU/L (30-200); CREATININE, SERUM 1.15 mg/dL (0.72-1.25); EST GLOMERULAR FILTRATION RATE 65 ML/MIN (60-); GLUCOSE 129 mg/dL (74-118); POTASSIUM 3.8 mmol/L (3.5-5.1); SODIUM 143 mmol/L (136-145)
== END 2021-01-23 00:35 | disposition home or self-care (01) ==
LOC: ER 23:31
DX: R07.89 Other chest pain (principal); R50.9 Fever, unspecified; I10 Essential (primary) hypertension; I48.91 Unspecified atrial fibrillation; F41.9 Anxiety disorder, unspecified; G47.33 Obstructive sleep apnea (adult) (pediatric)
CPT/HCPCS: 36415; 71045; 80053; 82550; 82553; 83880; 84484; 85025; 93005; 99283

== ENCOUNTER 2022-04-24 06:53 | Emergency (ER) | payer OTHER ==
[~2022-04-24] VITALS: Ht 167.6 cm; Wt 88.5 kg
[2022-04-24 07:11] LABS: BASOPHILS % 0.3 % (0.0-1.0); EOSINOPHILS # (AUTO) 0.2 (0.0-0.4); EOSINOPHILS % 3.2 % (0.0-6.0); HEMATOCRIT 41.5 % (38.2-49.6); HEMOGLOBIN 14.9 g/dL (14.0-18.0); LYMPHOCYTES # (AUTO) 3.2 (1.0-3.2); LYMPHOCYTES % 51.9 % (18.0-39.1); MEAN CORPUSCULAR HEMOGLOBIN 32.3 pg (28-32); MEAN CORPUSCULAR HGB CONC 35.9 g/dL (31-35); MEAN CORPUSCULAR VOLUME 89.8 fL (81-99); MONOCYTES # (AUTO) 0.8 (0.2-0.8); MONOCYTES % 13.2 % (4.4-11.3); NEUTROPHILS # (AUTO) 1.9 (2.1-6.9); NEUTROPHILS % 31.2 % (38.7-80.0); PLATELET COUNT 148 x10e3/uL (140-360); RED BLOOD COUNT 4.62 x10e6/uL (4.3-5.7)
[2022-04-24] MEDS ORDERED: LACTATED RINGER'S 1,000 ML INJ ONE (07:15)
[2022-04-24] MEDS ORDERED: DILTIAZEM HCL 5 MG/ML 5 ML VIAL IV ONE (07:15)
[2022-04-24 07:19] LABS: INR 1.05; PROTHROMBIN TIME 13.9 seconds (11.9-14.5)
[2022-04-24] MEDS ORDERED: DILTIAZEM HCL IV 5MG/ML 25 ML VIAL ONE (07:19)
[2022-04-24] MEDS ORDERED: ATENOLOL50 MG PO (07:24)
[2022-04-24 07:29] LABS: ALBUMIN 3.7 g/dL (3.5-5.0); ALBUMIN/GLOBULIN RATIO 1.1 (0.8-2.0); ANION GAP 11.8 mmol/L (8-16); CALCIUM 8.3 mg/dL (8.4-10.2); CREATININE, SERUM 0.91 mg/dL (0.72-1.25); POTASSIUM 3.8 mmol/L (3.5-5.1)
== END 2022-04-24 08:39 | disposition home or self-care (01) ==
LOC: ER 07:00
DX: I48.20 Chronic atrial fibrillation, unspecified (principal); I10 Essential (primary) hypertension; J44.9 Chronic obstructive pulmonary disease, unspecified; E78.5 Hyperlipidemia, unspecified; F41.9 Anxiety disorder, unspecified; R94.31 Abnormal electrocardiogram [ECG] [EKG]
CPT/HCPCS: 36415; 71045; 80053; 83880; 84484; 85025; 85610; 93005; 99284; J7121